=== PATIENT | female | born 1945 | race Caucasian/White ===

== ENCOUNTER 2024-05-01 08:42 | Observation (INO) | payer MEDICARE, SELFPAY ==
[2024-05-01] VITALS (8 sets, daily range): BP systolic 120–177; BP diastolic 57–85; PULSE 61–73; RESP 18–20; TEMP 36.8–37.9; O2SAT 95–98; BMI 21.3; BMI 22.6
--- NOTE | 2024-05-01 08:58 | ED.WEAKNESS ---
HPI - Weakness General Time Seen by Provider: 08:58 Date Seen: 05/01/24 Chief complaint: Weakness Stated complaint: Covid + and weakness Time Seen by Provider: 05/01/24 08:57 Source: patient Mode of arrival: wheelchair Limitations: no limitations History of Present Illness HPI Narrative: Patient is a very pleasant 78-year-old female with remote history of tobacco use having quit 30 years ago, history of colon cancer with partial colectomy, hypertension and history of recurrent C diff who comes to the emergency room for evaluation of weakness and COVID symptoms.Jameel was exposed to COVID in her great grand children last week on April 26. She tested negative on the and had no symptoms until TuesdayApril 29. At that time her voice became raspy and she sounded like she had no ammonia according to a daughter who is currently present with her. She tested positive for COVID. Since that time she has been convalescing at home. Today her daughter noted that she seemed much more weak and seemed to be breathing harder. They are worried that she has pneumonia. She also had the onset of watery stools today. Patient's daughter states that when she was getting out of the car she was very weak and was worried that she was going to fall and thus she came in by wheelchair. She has not been experiencing any fevers and did take a Tylenol earlier today. She did experience some chest pain yesterday but this was associated with coughing and she has no pain today. She and her daughter do describe a productive cough that she was able to actually expelling get up yesterday but today they feel like she is not able to cough as well as she had been doing yesterday. Patient noted to be currently on rivaroxaban, anti hyperlipidemic. As well as antihypertensives. Related Data Home Medications ?Medication ?Instructions ?Recorded ?Confirmed gabapentin 300 mg capsule 300 mg PO DAILY 08/16/22 05/01/24 hydrochlorothiazide 12.5 mg tablet 12.5 mg PO DAILY 08/16/22 05/01/24 metoprolol succinate 50 mg 50 mg PO DAILY 08/16/22 05/01/24 tablet,extended release 24 hr nitrofurantoin 100 mg PO DAILY 08/16/22 05/01/24 monohydrate/macrocrystals 100 mg capsule simvastatin 10 mg tablet 10 mg PO HS 08/16/22 05/01/24 rivaroxaban 10 mg tablet (Xarelto) 10 mg PO DAILY 05/26/23 05/01/24 Previous Rx's ?Medication ?Instructions ?Recorded nirmatrelvir 150 mg-ritonavir 100 See Rx Instructions PO .COMPLEX 05/01/24 mg tablets in a dose pack #20 ea (Paxlovid) Allergies Allergy/AdvReac Type Severity Reaction Status Date / Time No Known Drug Allergies Allergy Verified 05/26/23 12:15 Review of Systems Status of ROS: Reports: 10 or more systems reviewed and unremarkable except as noted in History and below Const: Reports: fatigue; Denies: fever or chills Eyes: Denies: change in vision ENMT: Denies: throat pain, neck pain or throat swelling Cardio: Reports: chest pain and lightheadedness; Denies: palpitations, edema or swelling of feet/ankles Resp: Reports: cough GI: Reports: diarrhea; Denies: abdominal pain, nausea or vomiting : Denies: painful urination Musculo: Denies: neck pain Endo: Reports: fatigue Allergy/Immuno: Denies: throat swelling [facility] Medical History (Reviewed 05/01/24 @ : by Toma Graham MD) Pneumonia ?J18.9 - Pneumonia, unspecified organism (ICD-10) URI (upper respiratory infection) ?J06.9 - Acute upper respiratory infection, unspecified (ICD-10) Sore throat ?J02.9 - Acute pharyngitis, unspecified (ICD-10) Cough ?R05.9 - Cough, unspecified (ICD-10) Social History (Reviewed 05/01/24 @ : by Toma Graham MD) Smoking Status: Former smoker How often do you have a drink containing alcohol: never How often do you have six or more drinks on one occasion: Never AUDIT-C Alcohol total score: 0 Non-prescribed substance use: denies use service: No Exam Narrative: Exam Narrative: Alert and oriented. Here with her daughters very loving and supportive. EOM is full. Mentating normally. Normal speech. Neck is supple without lymphadenopathy. Heart with a regular rate and rhythm. Do not auscultate rub at this time. Lungs are with decreased breath sounds in the bases bilaterally but I do not auscultate any crackles. Abdomen is soft nontender. Lower extremities with no edema. She is moving all of her extremities. Const: Vital Signs, click to edit/add: Vital Signs - 24 hr 05/01/24 08:48 05/01/24 09:11 Temperature 99.2 F Pulse Rate [Pulse Oximeter] 73 Respiratory Rate 18 Blood Pressure [Ri ght Upper Arm] 120/85 Pulse Oximetry 95 97 Oxygen Delivery Me thod Room Air Documenting provider has reviewed patient's vital signs: yes Course Course ED Course: Differential diagnosis includes but is not limited to dehydration, acute coronary event, pneumonia, sepsis, C diff. at this time will place an IV and draw labs to include CBC, comprehensive panel, D-dimer, troponin, CRP. Will place patient on cardiac cath technician and oximetry. At this time patient's O2 sats vary between 93-96%. She is not tachycardic. Will give her small bolus of 250 mL of normal saline. Will check AC diff although the diarrhea is more likely secondary to COVID infection. Chest x-ray pending. Reevaluation(s) Reevaluation #1: Patient does appear to be very weak. She is not wanting to stay in the hospital although her daughter is in favor of that idea. Unfortunately she does not meet criteria for admission inpatient status in regards to her COVID. Currently awaiting on her urine another laboratory values. Vital Signs Vital signs: Initial Vital Signs Temperature 99.2 F 05/01/24 08:48 Temperature Source Temporal Artery Scan 05/01/24 08:48 Pulse Rate 73 05/01/24 08:48 Respiratory Rate 18 05/01/24 08:48 Blood Pressure 120/85 05/01/24 08:48 Blood Pressure Mean 96 05/01/24 08:48 Blood Pressure Position Supine 05/01/24 08:48 Pulse Oximetry 95 05/01/24 08:48 Oxygen Delivery Method Room Air 05/01/24 08:48 Vital Signs Temperature 99.2 F 05/01/24 08:48 Pulse Rate 73 05/01/24 08:48 Respiratory Rate 18 05/01/24 08:48 Blood Pressure 120/85 05/01/24 08:48 Pulse Oximetry 95 05/01/24 08:48 Oxygen Delivery Method Room Air 05/01/24 08:48 Temperature 99.2 F 05/01/24 08:48 Pulse Rate 73 08/13/24 08:48 Respiratory Rate 18 05/01/24 08:48 Blood Pressure 120/85 05/01/24 08:48 Pulse Oximetry 97 05/01/24 09:11 Oxygen Delivery Method Room Air 05/01/24 08:48 MDM - Weakness MDM Narrative Medical decision making narrative: 1. COVID-today is day 3 of COVID with onset of symptoms on Tuesday morning. Positive exposure last week. Tested positive on Tuesday with a home antigen test. Fortunately patient's oxygen levels are reassuring between 93-96%. We did have her walk around the ED and O2 levels did not drop. X-ray is reassuring without any large infiltrates. Patient's daughter notes that yesterday her mom had coughed up some green mucus. Given the fact that her lung sounds are clear, she has COVID and the checks x-ray is reassuring would hesitate to treat with any antibiotics in a patient with recurrent C diff. she is eligible for Paxlovid at the [facility] renal does with a GFR of 60. While we do not have this medication in-house it is available at her [facility]. They have the prepackaged full-dose meds but not the renal packaging. This comes down to the number of pills of 1 of the antivirals and thus I have spoken with [facility] asking them to remove the excess nirmatrelvir. Patient had received her simvastatin early this morning. I would suggest to 12 hour wait and thus start the Paxlovid at 1800 hours. We spoke about the use of her other medications with Paxlovid. Gabapentin hydrochlorothiazide and metoprolol she is able to take without a dose change. Simvastatin will need to high be held and restarted this medication not until 3 days after she finishes Paxlovid. In regards to her Eliquis she is on this medication secondary to DVT and she does have a filter. Up-to-date suggests reduced dosage to 2.5 mg b.i.d. for those with atrial fibrillation. In this particular situation I do not think a dose reduction would be dougherty as patient has tendency to clot and she now has a virus that is inflammatory in nature and will increase her risk of clots. This was discussed with hospitalist today. 2. Urinary tract infection-patient has positive UTI. Initially could not elicit any urinary tract infection symptoms but patient notes that she was up 3 times during the night to urinate and this is very unusual for her. I am going to take urinary frequency as a sign of a UTI as the urinalysis is positive. We will be sending this for a culture. Again, concerns regarding the use of antibiotics in this patient with a history of C diff. I do think that she needs antibiotic treatment and thus we were able to look at past medical records. In 2020 she had received Ceftin and Bactrim and subsequently developed C diff. In 2021 when she developed a UTI she was treated with Keflex and vancomycin. She has not been able to give a sample of stool here in the ED. therefore I did not want to delay treatment of UTI and have given her Keflex 500 mg p.o.. Encouraging her to eat so hopefully we can have a stool sample sent to lab. 3. Weakness-I think this is most likely secondary to COVID but certainly the UTI could be at play. Culture pending 4. History of C diff-patient noted to have colon cancer with partial colectomy in the past. She notes that her baseline is loose stools and that when she has C diff she will have very watery stools which she experienced this morning. She states yesterday was normal. It is challenging to decide if the diarrhea is secondary to COVID verses a C diff infection. Unfortunately again unable to collect stool sample here. 4. Disposition-admit under the care of MASOUD Conti, hospitalist. Outpatient observation status was discussed and patient agreed. Medical Records Attestation: I reviewed the patient's medical records. Lab Data Attestation: I reviewed the patient's lab results. Labs: Lab Results 05/01/24 05/01/24 Range/Units 09:35 10:58 WBC 10.12 (4.50-11.00) K/uL RBC 3.61 L (4.00-5.20) m/uL Hgb 11.1 L (12.0-16.0) gm/dL Hct 34.6 (33.0-51.0) % MCV 96 (80-100) fL MCH 31 (26-34) pg MCHC 32 (32-36) gm/dL RDW Coeff of Clotilde 13.2 (11.5-15.5) % Plt Count 159 (140-440) K/uL Neut % (Auto) 80.0 H (42.0-72.0) % Lymph % (Auto) 10.3 L (20-44) % Cotton % (Auto) 9.1 (0.0-11.0) % Eos % (Auto) 0.1 (0.0-7.0) % Baso % (Auto) 0.4 (0.0-3.0) % Neut # (Auto) 8.10 H (1.7-7.0) K/uL Lymph # (Auto) 1.00 (0.90-2.90) K/uL Cotton # (Auto) 0.90 (0.00-0.90) K/UL Eos # (Auto) 0.01 (0.00-0.50) K/uL Baso # (Auto) 0.04 (0.00-0.30) K/uL Abs Immat Gran (auto) 0.01 (0.00-0.30) K/uL Imm/Tot Granulo (auto) 0.1 % D-Dimer Quant (PE/DVT) 0.55 H (0.00-0.50) ug/ml Sodium 133 L (135-149) mmol/L Potassium 3.8 (3.6-5.1) mmol/L Chloride 99 (96-114) mmol/L Carbon Dioxide 28 (20-32) mmol/L Anion Gap 6 L (7-15) mEq/L BUN 17 (7-30) mg/dL Creatinine 1.2 (0.5-1.5) mg/dL Estimated Creat Clear 31.45 Estimated GFR 46 ml/min Glucose 122 H (60-115) mg/dL Calcium 9.2 (8.4-10.6) mg/dL Total Bilirubin 0.5 (0.1-1.5) mg/dL AST 39 H (12-35) U/L ALT 16 (4-35) U/L Alkaline Phosphatase 78 (40-150) U/L C-Reactive Protein 8.6 H (0.5-1.0) mg/dL Total Protein 7.5 (6.0-8.3) g/dL Albumin 4.2 (3.3-5.0) g/dL Urine Color Yellow (Yellow) Urine Appearance Clear (Clear) Urine pH 5.5 (5.0-8.5) Ur Specific [place] 1.020 (1.000-1.030) Urine Protein 1+ A (Negative) Urine Glucose (UA) Negative (Negative) Urine Ketones 1+ A (Negative) Urine Blood 2+ A (Negative) Urine Nitrite Positive A (Negative) Urine Bilirubin Negative (Negative) Urine Urobilinogen 0.2 (0.2-1.0) Ur Leukocyte Esterase 3+ A (Negative) Urine RBC 5-10 A (0-2) Urine WBC >100 A (0-5) Ur Squamous Epith Cells Few (None-Few) Urine Bacteria Many A (None) POC Troponin I 0.00 L (0.01-0.04) ng/ml Imaging Data Chest x-ray: Attestation: I have reviewed the pertinent imaging results. Radiologist's impression: Low lung volumes. Normal cardiomediastinal silhouette. Mild bibasilar opacities. No pleural effusion or visualized pneumothorax. Impression: Mild bibasilar opacities may represent atelectasis given low lung volumes. ECG Data Attestation: I personally reviewed and interpreted this ECG as follows: Interpretation: EKG by my read shows sinus rhythm at a rate of 67. I do not note any acute T-wave or ST segment changes. QT and LA intervals within normal limits. Discharge Plan Discharge Prescriptions: New Paxlovid 150-100 mg tablets,dose pack See Rx Instructions .ROUTE .COMPLEX Qty: 20 0RF Rx Instructions: orally per package directions; Please remove excess meds as patient needs renal dosing No Action Xarelto 10 mg tablet 10 mg PO DAILY Rx Instructions: for 35 days nitrofurantoin monohyd/m-cryst 100 mg capsule 100 mg PO DAILY gabapentin 300 mg capsule 300 mg PO DAILY hydrochlorothiazide 12.5 mg tablet 12.5 mg PO DAILY simvastatin 10 mg tablet 10 mg PO HS metoprolol succinate 50 mg tablet extended release 24 hr 50 mg PO DAILY Follow Up/Referrals: Maye Slaughter MD [Primary Care Provider] -
--- NOTE | 2024-05-01 09:11 | CRLHL7_ITS ---
For Patients: As a result of the Century Cures Act, medical imaging exams and procedure reports are released immediately into your electronic medical record. You may view this report before your referring provider. If you have questions, please contact your health care provider. Indication: COVID, weakness Technique: AP view of the chest. Comparison: 12/09/2021 Findings: Low lung volumes. Normal cardiomediastinal silhouette. Mild bibasilar opacities. No pleural effusion or visualized pneumothorax. Impression: Mild bibasilar opacities may represent atelectasis given low lung volumes. Dictated by Sathya Frazier MD @ 05/01/2024 10:12:52 AM (Electronically Signed)
[2024-05-01 09:42] LABS: Basophils Absolute Auto 0.04 K/uL (0.00-0.30); Basophils Percent Auto 0.4 % (0.0-3.0); Eosinophils Absolute Auto 0.01 K/uL (0.00-0.50); Eosinophils Percent Auto 0.1 % (0.0-7.0); Hematocrit 34.6 % (33.0-51.0); Hemoglobin* 11.1 gm/dL (12.0-16.0); Immature Granulocytes Abs Auto 0.01 K/uL (0.00-0.30); Immature Granulocytes Pct Auto 0.1 %; Lymphocytes Percent Auto 10.3 % (20-44); Mean Corpuscular HGB Conc 32 gm/dL (32-36); Mean Corpuscular Hemoglobin 31 pg (26-34); Mean Corpuscular Volume 96 fL (80-100); Monocytes Percent Auto 9.1 % (0.0-11.0); Platelet Count* 159 K/uL (140-440); RDW Coefficient of Variation % 13.2 % (11.5-15.5); Red Blood Count 3.61 m/uL (4.00-5.20); White Blood Count* 10.12 K/uL (4.50-11.00)
[2024-05-01 09:45] LABS: Slide Review Reflex No
[2024-05-01 10:05] LABS: Albumin* 4.2 g/dL (3.3-5.0); Chloride* 99 mmol/L (96-114); Sodium* 133 mmol/L (135-149)
[2024-05-01 10:06] LABS: Potassium* 3.8 mmol/L (3.6-5.1)
[2024-05-01 10:08] LABS: Creatinine* 1.2 mg/dL (0.5-1.5); Est. Creatinine Clearance* 31.45; Estimated Glomerular Filt Rate 46 ml/min
[2024-05-01 10:09] LABS: Alanine Aminotransferase* 16 U/L (4-35); Alkaline Phosphatase* 78 U/L (40-150); Anion Gap 6 mEq/L (7-15); Aspartate Amino Transferase* 39 U/L (12-35); Bilirubin Total* 0.5 mg/dL (0.1-1.5); Blood Urea Nitrogen* 17 mg/dL (7-30); Calcium* 9.2 mg/dL (8.4-10.6); Carbon Dioxide* 28 mmol/L (20-32); Glucose* 122 mg/dL (60-115); Total Protein* 7.5 g/dL (6.0-8.3)
[2024-05-01 10:10] LABS: D Dimer Quantitative* 0.55 ug/ml (0.00-0.50)
[2024-05-01 10:12] LABS: C Reactive Protein* 8.6 mg/dL (0.5-1.0)
[2024-05-01 11:11] LABS: Appearance Urine Clear (Clear); Bilirubin Urine Negative (Negative); Blood Urine 2+ (Negative); Color Urine Yellow (Yellow); Glucose Urine Negative (Negative); Ketones Urine 1+ (Negative); Leukocyte Esterase Urine 3+ (Negative); Nitrite Urine Positive (Negative); Protein Urine 1+ (Negative); Urobilinogen Urine 0.2 (0.2-1.0); pH Urine 5.5 (5.0-8.5)
[2024-05-01 11:30] LABS: Bacteria Urine Many; Squamous Epithelial Cell Urine Few (None-Few); WBC Urine >100 (0-5)
--- NOTE | 2024-05-01 13:52 | P.IMHP_ITS ---
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 Patient was brought to the ED by her daughter with complaints of increasing weakness, a raspy voice, and increased work of breathing. She tested positive for COVID with a home antigen test on 04/29 after being exposed to great grandchildren on 04/26 who also ended up testing positive. Getting out of the car was difficult for the patient and needed to be brought in by wheelchair. Patient also had onset of watery diarrhea today. Took Imodium and has had no further stools today. She does have a history of C difficile in the past. Complains of generalized aches, headache, dizziness with standing. Denies chest pain or shortness of breath. Had a cough yesterday which has not bothered her at all today. Denies nausea or vomiting. Quit smoking 30 years ago. Drinks 1-2 beers daily. Requests DNR/DNI. Review of Systems Narrative: REVIEW OF SYSTEMS: Complete review of systems performed and negative unless otherwise stated in HPI or below. [facility] Medical History (Updated 05/01/24 @ 14:57 by Felicia Hancock PA-C) Pre-diabetes ?R73.03 - Prediabetes (ICD-10) Chronic anticoagulation ?Z79.01 - senior living (current) use of anticoagulants (ICD-10) History of DVT (deep vein thrombosis) ?Z86.718 - Personal history of other venous thrombosis and embolism (ICD-10) Recurrent UTI ?N39.0 - Urinary tract infection, site not specified (ICD-10) CKD stage 3b, GFR 30-44 ml/min ?N18.32 - Chronic kidney disease, stage 3b (ICD-10) Multiple sclerosis ?G35 - Multiple sclerosis (ICD-10) Normocytic anemia ?D64.9 - Anemia, unspecified (ICD-10) Chronic colitis ?K52.9 - Noninfective gastroenteritis and colitis, unspecified (ICD-10) History of Clostridioides difficile colitis ?Z86.19 - Personal history of other infectious and parasitic diseases (ICD- 10) History of rectal cancer ?Z85.048 - Personal history of other malignant neoplasm of rectum, rectosigmoid junction, and anus (ICD-10) GERD (gastroesophageal reflux disease) ?K21.9 - Gastro-esophageal reflux disease without esophagitis (ICD-10) Hyperlipidemia ?E78.5 - Hyperlipidemia, unspecified (ICD-10) Hypertension ?I10 - Essential (primary) hypertension (ICD-10) Pneumonia ?J18.9 - Pneumonia, unspecified organism (ICD-10) URI (upper respiratory infection) ?J06.9 - Acute upper respiratory infection, unspecified (ICD-10) Sore throat ?J02.9 - Acute pharyngitis, unspecified (ICD-10) Cough ?R05.9 - Cough, unspecified (ICD-10) Social History Smoking Status: Former smoker How often do you have a drink containing alcohol: never How often do you have six or more drinks on one occasion: Never AUDIT-C Alcohol total score: 0 Non-prescribed substance use: denies use service: No Meds Home Medications and Allergies Home Medications ?Medication ?Instructions ?Recorded ?Confirmed ?Type gabapentin 300 mg capsule 300 mg PO DAILY 08/16/22 05/01/24 History hydrochlorothiazide 12.5 mg tablet 12.5 mg PO DAILY 08/16/22 05/01/24 History metoprolol succinate 50 mg 50 mg PO DAILY 08/16/22 05/01/24 History tablet,extended release 24 hr nitrofurantoin 100 mg PO DAILY 08/16/22 05/01/24 History monohydrate/macrocrystals 100 mg capsule simvastatin 10 mg tablet 10 mg PO HS 08/16/22 05/01/24 History rivaroxaban 10 mg tablet (Xarelto) 10 mg PO DAILY 05/26/23 05/01/24 History Allergies Allergy/AdvReac Type Severity Reaction Status Date / Time No Known Drug Allergies Allergy Verified 05/26/23 12:15 Exam Narrative: Exam Narrative: PHYSICAL EXAM General: Very pleasant, conversant, NAD HEENT: Normocephalic, atraumatic, sclera white, EOMI, oral mucosa dry Cardiovascular: RRR, S1S2. No pitting edema Pulmonary: CTA bilaterally without rhonchi, rales, expiratory wheezes. No dyspnea on room air Abdominal: Soft, nondistended, NTTP Neurological: Alert, answering questions appropriately, cranial nerves intact, no focal findings Extremities: No gross joint deformity or swelling. AROMI. Neurovascularly intact Skin: Warm, dry. Const: Vital Signs, click to edit/add: Vital Signs - 24 hr 05/01/24 08:48 05/01/24 09:11 Temperature 99.2 F Pulse Rate [Pulse Oximeter] 73 Respiratory Rate 18 Blood Pressure [Ri ght Upper Arm] 120/85 Pulse Oximetry 95 97 Oxygen Delivery Me thod Room Air Hospitalist - H&P: Result Labs Labs: Short CBC 05/01/24 Range/Units 09:35 WBC 10.12 (4.50-11.00) K/uL Hgb 11.1 L (12.0-16.0) gm/dL Hct 34.6 (33.0-51.0) % Plt Count 159 (140-440) K/uL BMP 05/01/24 09:35 Sodium 133 L Potassium 3.8 Chloride 99 Carbon Dioxide 28 BUN 17 Creatinine 1.2 Glucose 122 H Calcium 9.2 Liver Function 05/01/24 Range/Units 09:35 Total Bilirubin 0.5 (0.1-1.5) mg/dL AST 39 H (12-35) U/L ALT 16 (4-35) U/L Alkaline Phosphatase 78 (40-150) U/L Albumin 4.2 (3.3-5.0) g/dL Urine 05/01/24 Range/Units 10:58 Urine Color Yellow (Yellow) Urine Appearance Clear (Clear) Urine pH 5.5 (5.0-8.5) Ur Specific [place] 1.020 (1.000-1.030) Urine Protein 1+ A (Negative) Urine Glucose (UA) Negative (Negative) Imaging Chest x-ray: Attestation: I have reviewed the pertinent imaging results. Radiologist's impression: Low lung volumes. Normal cardiomediastinal silhouette. Mild bibasilar opacities. No pleural effusion or visualized pneumothorax. Impression: Mild bibasilar opacities may represent atelectasis given low lung volumes. Assessment and Plan Assessment and plan (1) COVID: Problem comment: + home antigen test 04/29/24 CXR shows Low lung volumes. Normal cardiomediastinal silhouette. Mild bibasilar opacities. No pleural effusion or visualized pneumothorax Weakness, unsafe to return home alone No oxygen requirements, ambulatory sats 93-96%. No further cough ED has prescribed Paxlovid, renally dosed, for daughter to berry picker machine operator for her - first dose this evening. Discussed with pharmacy Simvastatin held - okay to restart 3 days after finishing Paxlovid PT/OT consults, social media editor for discharge planning/placement needs Status: Acute (2) Diarrhea: Problem comment: Possibly COVID related. Also notable history of C difficile. History of colon cancer s/p partial colectomy Collect stools for C diff Precautions Status: Acute (3) UTI (urinary tract infection): Problem comment: Acute on chronic, recurrent Increased urinary frequency overnight. Afebrile. Vitally stable. Increased wea kness Urinalysis + nitrites, 3+ LE, >100 WBC. UC pending. No leukocytosis Ceftriaxone, transitioning to oral, pending UC results IVF, 1L History of C diff following antibiotic management previous UTIs, collect stools for C diff Status: Acute (4) History of DVT (deep vein thrombosis): Problem comment: On chronic anticoagulation, Eliquis 10 mg daily. History of IVC filter Given significant history, continue on current dosing while on Paxlovid knowing increased risk for clots with covid. Discussed with pharmacy Status: Acute (5) CKD stage 3b, GFR 30-44 ml/min: Problem comment: Creatinine 1.2, previous 0.95 Estimated creatinine clearance 31.45 Paxlovid, renally dosed Monitor Status: Acute (6) Hypertension: Problem comment: Continue home medications Status: Acute (7) Hyperlipidemia: Problem comment: Hold statin while taking Paxlovid. Restart 3 days after completing therapy Status: Acute (8) Multiple sclerosis: Problem comment: Diagnosed approximately 40 years ago Followed by Neurology, last visit 04/[address] Bellamy Status: Acute Plan Consider discharge 1-2 days pending clinical improvement, safe discharge plan Total Time Spent Total Time Spent: Total time spent caring for the patient today was 45 minutes. This includes time spent for the visit reviewing the chart, time spent during the visit, time spent after the visit and documentation and planning in coordination of care.
--- NOTE | 2024-05-01 15:43 | PC.NURSE ---
Nursing Care Hours: [id number] Pt arrived from ED on w/c. Ax1 with cane to bed. Settled with warm blanket. Report given to oncoming nurse.
[2024-05-01] MEDS: NIRMATRELVIR/RITONAVIR DOSEPAK 2 TAB PO (16:16)
[2024-05-01] MEDS: 0.9 % SODIUM CHLORIDE 1000 ml 1,000 ML 125 ML IV (16:34)
[2024-05-01] MEDS: cefTRIAXone 1 GM in 0.9 % SODIUM CHLORIDE Mini-bag 100 ML IVPB (16:34)
[2024-05-01] MEDS: ACETAMINOPHEN 325 MG TABLET 650 MG PO (22:16)
[2024-05-01] MEDS: MELATONIN 3 MG TABLET PO (23:02)
[2024-05-02 03:00] VITALS: BP 134/69; PULSE 64; RESP 18; TEMP 37.3; O2SAT 92
--- NOTE | 2024-05-02 05:35 | PC.NURSE ---
[id number] Pt had some difficulty sleeping during the night, states she was wide awake every time RN went into room for cares/rounds. ambulating with cane and SBA, states she feels weak, occasional lightheaded, denies feeling dizzy, tolerated activity fair. O2 sats >92% on RA during checks, denies SOB, chest pain or difficulty breathing. mild temp noted with 2300 vitals, tylenol administered and temp decreased.
[2024-05-02 05:39] VITALS: TEMP 37.3
[2024-05-02] MEDS: NIRMATRELVIR/RITONAVIR DOSEPAK 2 TAB PO ×2 (06:19→08:52)
[2024-05-02 07:18] VITALS: PULSE 61
[2024-05-02 08:01] VITALS: BP 137/78; PULSE 62; RESP 16; TEMP 37.4; O2SAT 96
[2024-05-02 08:09] VITALS: PULSE 62; RESP 16
[2024-05-02] MEDS: METOPROLOL SUCCINATE (XL) 50 MG TAB PO (08:52)
[2024-05-02] MEDS: GABAPENTIN 300 MG CAPSULE PO (08:52)
[2024-05-02] MEDS: hydroCHLOROthiazide 12.5 MG CAPSULE PO (08:52)
[2024-05-02] MEDS: RIVAROXABAN 10 MG TABLET PO (08:52)
[2024-05-02] MEDS: SODIUM CHLORIDE 0.9 % (FLUSH) 10 ML SYRINGE 5 ML IVF (08:52)
[2024-05-02 09:37] LABS: Hematocrit 35.5 % (33.0-51.0); Mean Corpuscular HGB Conc 31 gm/dL (32-36); Mean Corpuscular Hemoglobin 30 pg (26-34); Mean Corpuscular Volume 98 fL (80-100); Platelet Count* 159 K/uL (140-440); Red Blood Count 3.64 m/uL (4.00-5.20); White Blood Count* 4.93 K/uL (4.50-11.00)
[2024-05-02 09:40] LABS: Slide Review Reflex No
[2024-05-02 09:51] LABS: Chloride* 101 mmol/L (96-114); Potassium* 3.5 mmol/L (3.6-5.1); Sodium* 136 mmol/L (135-149)
[2024-05-02 09:53] LABS: Creatinine* 0.8 mg/dL (0.5-1.5); Est. Creatinine Clearance* 37.74; Estimated Glomerular Filt Rate 75 ml/min
[2024-05-02 09:54] LABS: Anion Gap 7 mEq/L (7-15); Blood Urea Nitrogen* 18 mg/dL (7-30); Carbon Dioxide* 28 mmol/L (20-32)
[2024-05-02 09:55] LABS: Glucose* 84 mg/dL (60-115)
[2024-05-02 09:57] LABS: C Reactive Protein* 8.5 mg/dL (0.5-1.0)
--- NOTE | 2024-05-02 10:24 | PC.SOCIAL ---
Spoke with pt.'s daughter Felicia to discuss discharge plans. Pt. lives in her own home independently and prior to getting COVID has not needed any additional assistance at home. Pt's daughter Felicia @[phone] lives a couple of houses down from pt. and plans to assist pt. if needed at discharge. Pt. and family are aware they can contact the social work if they need additional resources for pt. at home.
[2024-05-02 10:54] VITALS: BP 136/74; PULSE 62; RESP 16; TEMP 37.1; O2SAT 95
--- NOTE | 2024-05-02 11:13 | PM.DS1 ---
DS: Providers Provider Date Seen: 05/02/24 Date of admission: 05/01/24 14:16 Primary care physician: Maye Slaughter MD Admitting Clinician: POONAM Gee PA-C [facility] Hospitalist Consults: 05/01/24 14:36 Consult to Occupational Therapy [CONS] Routine Comment: Reason(s) for OT Consult:: Evaluate and Treat Any Restrictions?:: No Restrictions Consult to Physical Therapy [CONS] Routine Comment: Reason(s) for PT Consult:: Evaluate and Treat Any Restrictions?:: No Restrictions Consult to [facility] [CONS] Routine Comment: Reason for Consult:: Social Service Consult Attending Physician on discharge: POONAM Gee PA-C [facility] Hospitalist Date of Discharge: 05/02/24 DS: Diagnosis Discharge Diagnosis (1) COVID: Status: Acute Problem details: + home antigen test 04/29/24 CXR shows Low lung volumes. Normal cardiomediastinal silhouette. Mild bibasilar opacities. No pleural effusion or visualized pneumothorax Weakness, unsafe to return home alone No oxygen requirements, ambulatory sats 93-96%. No further cough. Symptoms significantly improving prior to discharge. Continue Paxlovid as prescribed Simvastatin held - okay to restart 3 days after finishing Paxlovid (on or around 05/10) PT/OT consulted, patient safe to return home. Encouraging use of a walker. Has a family member, also a PT, who will assist her. (2) Diarrhea: Status: Acute Problem details: Possibly COVID related. Also notable history of C difficile. History of colon cancer s/p partial colectomy No further stools during course of hospitalization. If recur following discharge, while on oral antibiotic, instructed follow-up with PCP for stool testing. (3) UTI (urinary tract infection): Status: Acute Problem details: Acute on chronic, recurrent. Previous urine cultures (2021) growing E coli, Klebsiella, Enterococcus - sensitive to cephalosporins Increased urinary frequency overnight. Afebrile. Vitally stable. Increased weakness Urinalysis + nitrites, 3+ LE, >100 WBC. Bloodwork without leukocytosis. UC pending at time of discharge. Initiated on Ceftriaxone and transitioned to Ceftin on discharge. (4) History of DVT (deep vein thrombosis): Status: Acute Problem details: On chronic anticoagulation, Eliquis 10 mg daily. History of IVC filter Given significant history, continue on current dosing while on Paxlovid knowing increased risk for clots with covid. Discussed with pharmacy (5) CKD stage 3b, GFR 30-44 ml/min: Status: Acute Problem details: Creatinine 1.2 on admission, previous 0.95, improved to 0.8 on day of discharge. Estimated creatinine clearance 31.45 on admission. Paxlovid renally dosed. (6) Hypertension: Status: Acute Problem details: Continued home medications (7) Hyperlipidemia: Status: Acute Problem details: Hold statin while taking Paxlovid. Restart 3 days after completing therapy, on or approximately 05/10/24 (8) Multiple sclerosis: Status: Acute Problem details: Diagnosed approximately 40 years ago Followed by Neurology, last visit 04/[address] Bellamy DS: Summary Hospital Course Hospital Course: [age] year old female was admitted to the medical floor for management weakness in setting of COVID and UTI. Course of care and details as noted above. Remainder of chronic medical comorbidities were monitored and managed with home medications. Status at Discharge Functional status at discharge: uses cane/walker Overall status at discharge: patient is back to baseline Time Spent with Patient Time attestation: Total time spent providing and/or coordinating discharge services: Time spent: Greater than 30 minutes Exam Narrative: Exam Narrative: PHYSICAL EXAM General: Pleasant, conversant, NAD Cardiovascular: RRR Pulmonary: No dyspnea Neurological: Alert, answering questions appropriately Skin: Warm, dry. Const: Vital Signs, click to edit/add: Vital Signs - 24 hr 05/01/24 14:36 05/01/24 14:36 05/01/24 14:36 Temperature 98.3 F Pulse Rate 63 Pulse Rate [Pulse Oximeter] 61 Respiratory Rate 18 18 Blood Pressure [Le ft Arm] 123/57 L Pulse Oximetry 97 97 Oxygen Delivery Me thod Room Air Room Air 05/01/24 15:00 05/01/24 16:00 05/01/24 16:00 Temperature 98.3 F Pulse Rate Pulse Rate [Pulse Oximeter] 61 61 Respiratory Rate 18 18 18 Blood Pressure [Le ft Arm] 123/57 L Pulse Oximetry 97 97 Oxygen Delivery Me thod Room Air Room Air 05/01/24 19:00 05/01/24 22:16 05/01/24 23:00 Temperature 99.7 F H 100.2 F H 100.2 F H Pulse Rate Pulse Rate [Pulse Oximeter] 63 68 Respiratory Rate 20 18 Blood Pressure [Le ft Arm] 177/84 H 172/82 H Pulse Oximetry 98 97 Oxygen Delivery Me thod Room Air Room Air 05/01/24 23:00 05/02/24 03:00 05/02/24 05:39 Temperature 99.1 F 99.1 F Pulse Rate 64 Pulse Rate [Pulse Oximeter] 64 Respiratory Rate 18 Blood Pressure [Le ft Arm] 134/69 Pulse Oximetry 92 Oxygen Delivery Me thod Room Air 05/02/24 07:18 05/02/24 08:01 05/02/24 08:09 Temperature 99.4 F Pulse Rate 61 Pulse Rate [Pulse Oximeter] 62 62 Respiratory Rate 16 16 Blood Pressure [Le ft Arm] 137/78 Pulse Oximetry 96 Oxygen Delivery Me thod Room Air 05/02/24 10:54 Temperature 98.7 F Pulse Rate Pulse Rate [Pulse Oximeter] 62 Respiratory Rate 16 Blood Pressure [Le ft Arm] 136/74 Pulse Oximetry 95 Oxygen Delivery Me thod Room Air DS: Data Data Completed and Pending Labs on day of discharge: Labs from last 24 hours 05/02/24 05/01/24 03:12 10:58 WBC 4.93 RBC 3.64 L Hgb 11.0 L Hct 35.5 MCV 98 MCH 30 MCHC 31 L Plt Count 159 Sodium 136 Potassium 3.5 L Chloride 101 Carbon Dioxide 28 Anion Gap 7 BUN 18 Creatinine 0.8 Estimated Creat Clear 37.74 Estimated GFR 75 Glucose 84 Calcium 9.0 C-Reactive Protein 8.5 H Urine Color Yellow Urine Appearance Clear Urine pH 5.5 Ur Specific [place] 1.020 Urine Protein 1+ A Urine Glucose (UA) Negative Urine Ketones 1+ A Urine Blood 2+ A Urine Nitrite Positive A Urine Bilirubin Negative Urine Urobilinogen 0.2 Ur Leukocyte Esterase 3+ A Urine RBC 5-10 A Urine WBC >100 A Ur Squamous Epith Cells Few Urine Bacteria Many A Preliminary micro results at discharge 05/01/24 10:58 Urine Culture - Preliminary Urine,Clean Catch Culture in Progress Discharge Plan Discharge Disposition: Home, Self-Care Date of Admission: 05/01/24 14:16 Attending Provider on Discharge: Felicia Hancock Primary Care Provider: Maye Slaughter Condition: Improved Anticipated Discharge Date/Time: 05/02/24 10:59 Discharge Medications: New Paxlovid 150-100 mg tablets,dose pack See Rx Instructions .ROUTE .COMPLEX Qty: 20 0RF Rx Instructions: orally per package directions; Please remove excess meds as patient needs renal dosing cefuroxime axetil 500 mg tablet 500 mg PO BID Qty: 14 0RF Continued Xarelto 10 mg tablet 10 mg PO DAILY Rx Instructions: for 35 days gabapentin 300 mg capsule 300 mg PO DAILY hydrochlorothiazide 12.5 mg tablet 12.5 mg PO DAILY metoprolol succinate 50 mg tablet extended release 24 hr 50 mg PO DAILY Held nitrofurantoin monohyd/m-cryst 100 mg capsule 100 mg PO DAILY Hold Instructions: Resume on 05/11/24. Resume when instructed by PCP simvastatin 10 mg tablet 10 mg PO HS Hold Instructions: Resume on 05/10/24. You may resume simvastatin 3 days after you finish Paxlovid, 05/10/24 Discharge Orders: Discharge Order (Routine); Ordered 05/02/24 Ordered By: Felicia Hancock Patient Education: Cefuroxime (By mouth), Nirmatrelvir/Ritonavir (By mouth) (Paxlovid), Urinary Tract Infection in Women (GEN), COVID-19 (Coronavirus Disease 2019) (GEN) Additional Instructions: You have been prescribed Ceftin for your UTI. Complete all of this antibiotic. Your urine culture is pending. If you develop watery diarrhea, follow up with your PCP for stool testing. Finish Paxlovid as prescribed. Continue to quarantine, current CDC recommendations are 5 days if symptom free. You may start taking your simvastatin 3 days after you finish your Paxlovid. Continue taking your Xarelto as prescribed. Remember to use you walker Activity Level: Activity as Tolerated Discharge Diet: Regular Follow Up Appointments: Maye Slaughter MD [Primary Care Provider] - (Post hospital follow up 7-10 days) Forms: [employer] Info Instructions
--- NOTE | 2024-05-02 13:59 | PC.NURSE ---
discharge. pt has been very pleasant. no pain. she is up with a cane. RN recommended a walker. PT got her a walker and PT said she she liked it. she is eating drinking and voiding, no temps. tele shows 1 st degree HB> SL was d/c intact., went over discharge packet with pt and family. went over medications, appointments, instruction and educations. pt went over and signed personal belonging sheet.
--- NOTE | 2024-05-02 14:33 | REH.OT ---
OT consult order received. Pt. discharged prior to evaluation.
== END 2024-05-02 11:55 | disposition home or self-care (01) ==
LOC: ED 10:09 → MEDSURG 14:17
PROVIDERS: Physician Assistant; Admitting Provider Family Medicine; Emergency Provider Family Medicine; PCP Family Medicine; Visit Provider Family Medicine
DX: U07.1 COVID-19 (principal); N39.0 Urinary tract infection, site not specified; R53.1 Weakness; R19.7 Diarrhea, unspecified; R91.8 Other nonspecific abnormal finding of lung field; R05.9 Cough, unspecified; R53.83 Other fatigue; I12.9 Hypertensive chronic kidney disease with stage 1 through stage 4 chronic kidney disease, or unspecified chronic kidney disease; N18.32 Chronic kidney disease, stage 3b; G35 Multiple sclerosis; K21.9 Gastro-esophageal reflux disease without esophagitis; E78.5 Hyperlipidemia, unspecified; Z79.01 Long term (current) use of anticoagulants; Z86.718 Personal history of other venous thrombosis and embolism; Z87.891 Personal history of nicotine dependence; Z86.010 Personal history of colon polyps; Z87.19 Personal history of other diseases of the digestive system; Z86.19 Personal history of other infectious and parasitic diseases; Z98.890 Other specified postprocedural states; Z85.048 Personal history of other malignant neoplasm of rectum, rectosigmoid junction, and anus
CPT/HCPCS: 36415; 71045; 80048; 80053; 81001; 84484; 85025; 85027; 85379; 86140; 87086; 87186; 87493; 93005; 94761; 96361; 96365; 97112; 97116; 97161; 99284; 99285; G0378; A9270; J0696; J7030

== ENCOUNTER 2024-12-02 18:14 | Inpatient (IN) | payer MEDICARE, SELFPAY ==
[2024-12-02] VITALS (7 sets, daily range): BP systolic 103–152; BP diastolic 60–84; PULSE 88–98; RESP 16–18; TEMP 37.2–39.5; O2SAT 91–98; BMI 21.3
--- OUTSIDE RECORDS SUMMARY | 2024-12-02 18:17 | XMS_ITS | Data Portability ---
Author Organization [facility] 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 Plan of Treatment Reminders Order Date Submit Date Provider Last Modified By Organization Details Last Modified Time Details Appointments None recorded. Lab culture, urine 2020 021 [facility], [address] [place], [address], 15:55:38 CMP, serum or plasma 2020 021 [facility], [address] [place], [address], 13:45:16 CBC 2020 021 [facility], [address] [place], [address], 11:53:49 urinalysis , complete 2020 021 [facility], [address], [place], [address], 11:29:49 magnesium, serum or plasma 2020 021 [facility], [address] [place], [address], 13:45:17 Referral None recorded. Procedures None recorded. Surgeries None recorded. Imaging None recorded. Medication Orders None recorded. Patient TargetsNo targets recorded. Patient Instructions Encounter Date Encounter Id Patient Instructions Last Modified By Organization Details Last Modified Time 11/07/2020 [id number] dehydration: car e instructions Not available 11/07/2020 10:10:05 11/11/2020 [id number] Urinary Tract Infection (UTI) in Women: Care Instructions Not available 11/11/2020 09:26:32 Reason for Referral None Reported. Results Created Date Observation Date Name Description Value Unit Range Abnormal Flag Note LastModifiedBy Organization Detail LastModifiedTime 11/07/1911/07/2020 urina lysis , compl ete color YELLOW yellow Not Available [facility] [address] [place], [address], 11/07/2020 11:29:49 11/07/19 21 11/07/2020 urina lysis , compl ete appearance SLIGHT LY CLOUDY clear abnormal Not Available [facility] [address] [place], [address], 11/07/2020 11:29:49 11/07/19 21 11/07/2020 urina lysis , compl ete specific gravity 1.011 1.005- 1.030 Not Available [facility] [address] [place], [address], 11/07/2020 11:29:49 11/07/19 21 11/07/2020 urina lysis , compl ete pH 6.50 5.00-8 .00 Not Available [facility] [address] [place], [address], 11/07/2020 11:29:49 11/07/19 21 11/07/2020 urina lysis , compl ete glucose NEGATI VE mg/dL negati ve Not Available [facility] [address], [place], [address], 11/07/2020 11:29:49 11/07/19 21 11/07/2020 urina lysis , compl ete bilirubin NEGATI VE mg/dL negati ve Not Available [facility] [address], [place], [address], 11/07/2020 11:29:49 11/07/19 21 11/07/2020 urina lysis , compl ete ketone NEGATI VE mg/dL negati ve Not Available [facility] [address], [place], [address], 11/07/2020 11:29:49 11/07/19 21 11/07/2020 urina lysis , compl ete blood SMALL mg/dL negati ve abnormal Micro scopi c is indic ated for trace blood , trace leuko cytes , + nitri nunu, or 1+ prote in. All other s are consi dered negat jhoan and no micro scopi c neede d. Not Available [facility] [address], [place], [address], 11/07/2020 11:29:49 11/07/19 21 11/07/2020 urina lysis , compl ete urobilinogen NORMAL E.U./ dL 0.2 E.U./d L Not Available [facility] [address], [place], [address], 11/07/2020 11:29:49 11/07/19 21 11/07/2020 urina lysis , compl ete protein NEGATI VE mg/dL negati ve Not Available [facility] [address], [place], [address], 11/07/2020 11:29:49 11/07/19 21 11/07/2020 urina lysis , compl ete nitrite NEGATI VE negati ve Not Available [facility] [address] [place] [address] [address], [place], [address], 11/07/2020 11:29:49 11/07/19 21 11/07/2020 urina lysis , compl ete leukocyte LARGE camila/u L negati ve abnormal A Cultu re will refle x when any of the follo wing crite prakash is met: - Posit jhoan Nitri te - Small , Moder ate or Large Leuko cytes - => 6 WBC/H PF - 4+ Bacte prakash on micro scopi c exami natio n - Any amoun t of YEAST on micro scopi c exam Not Available [facility] [address] [place] [address] [address], [place], [address], 11/07/2020 11:29:49 11/07/19 21 11/07/2020 cultu re, urine refle x culture, urine reflex SENT FOR CULTUR E Not Available [facility] [address] [place] [address] [address] [place], [address], 11/07/2020 11:29:50 11/07/19 21 11/07/2020 urina lysis , micro scopi c URBC 6 #/hpf 0-3 high Not Available [facility] [address] [place] [address] [address] [place], [address], 11/07/2020 11:29:50 11/07/19 21 11/07/2020 urina lysis , micro scopi c UWBC 149 #/hpf 0-3 high Not Available [facility] [address] [place] [address] [address] [place], [address], 11/07/2020 11:29:50 11/07/19 21 11/07/2020 urina lysis , micro scopi c epithelial cells 1 /hpf 0-10 Not Available [facility] [address] [place] [address] [address] [facility], [place], [address], 11/07/2020 11:29:50 11/07/19 21 11/07/2020 urina lysis , micro scopi c bacteria 4+ /uL none seen abnormal Not Available [facility] [address], [place], [address], 11/07/2020 11:29:50 11/07/19 21 11/07/2020 CBC WBC_I 10.10 3.60-1 0.00 high Not Available [facility] [address], [place], [address], 11/07/2020 11:53:49 11/07/19 21 11/07/2020 CBC nucleated RBC 0.10 % 0.00-2 .00 Not Available [facility], [place], [address], 11/07/2020 11:53:49 11/07/19 21 11/07/2020 CBC RBC 3.56 M/uL 3.90-5 .00 low Not Available [facility] [address] [place], [place] [address]y [address], [place], [address], 11/07/2020 11:53:49 11/07/19 21 11/07/2020 CBC hemoglobin 11.3 g/dL 12.0-1 5.0 low Not Available [facility] [address] [place], [place] [address]y [address], [place], [address], 11/07/2020 11:53:49 11/07/19 21 11/07/2020 CBC hematocrit 33.60 % 35.00- 45.00 low Not Available [facility] [address], [place], [address], 11/07/2020 11:53:49 11/07/19 21 11/07/2020 CBC MCV 94.5 fL 80.0-9 9.0 Not Available [facility] [address], [place], [address], 11/07/2020 11:53:49 11/07/19 21 11/07/2020 CBC MCH 31.7 pg 27.0-3 3.0 Not Available [facility] [address], [place], [address], 11/07/2020 11:53:49 11/07/19 21 11/07/2020 CBC MCHC 33.6 g/dL 32.0-3 6.0 Not Available [facility] [address], [place], [address], 11/07/2020 11:53:49 11/07/19 21 11/07/2020 CBC platelets 408 K/uL 140-44 0 Not Available [facility], [place], [address], 11/07/2020 11:53:49 11/07/19 21 11/07/2020 CBC RDW_I 13.2 % 11.0-1 5.0 Not Available [facility] [address], [place], [address], 11/07/2020 11:53:49 11/07/19 21 11/07/2020 CBC MPV 7.8 fL 7.4-10 .4 Not Available [facility] [address], [place], [address], 11/07/2020 11:53:49 11/07/19 21 11/07/2020 CBC neutrophil, percentage 59.2 % 40.0-7 5.0 Not Available [facility] [address], [place], [address], 11/07/2020 11:53:49 11/07/19 21 11/07/2020 CBC lymphocyte, percentage 29.6 % 15.0-4 5.0 Not Available [facility] [facility] [address], [place], [address], 11/07/2020 11:53:49 11/07/19 21 11/07/2020 CBC monocyte, percentage 8.7 % 4.0-9. 0 Not Available [facility] [address] [place], [place] [address]y [address], [place], [address], 11/07/2020 11:53:49 11/07/19 21 11/07/2020 CBC eosinophil, percentage 1.7 % 1.0-6. 0 Not Available [facility] [address] [place], [place] [address]y [address], [place], [address], 11/07/2020 11:53:49 11/07/19 21 11/07/2020 CBC basophil, percentage 0.8 % 0.0-2. 0 Not Available [facility] [address] [place], [place] [address]y [address], [place], [address], 11/07/2020 11:53:49 11/07/19 21 11/07/2020 CBC neutrophil, absolute 6.0 K/uL 1.5-7. 5 Not Available [facility] [address] [place], [place] [address] [address] [place], [address], 11/07/2020 11:53:49 11/07/19 21 11/07/2020 CBC lymphocyte, absolute 3.0 K/uL 0.8-4. 0 Not Available [facility] [address] [place], [place] [address], [place], [address], 11/07/2020 11:53:49 11/07/19 21 11/07/2020 CBC monocyte, absolute 0.9 K/uL 0.1-1. 0 Not Available [facility] [address] [place] [address] [address], [place], [address], 11/07/2020 11:53:49 11/07/19 21 11/07/2020 CBC eosinophil, absolute 0.2 K/uL 0.1-1. 0 Not Available [facility] [address] [place], [address], 11/07/2020 11:53:49 11/07/19 21 11/07/2020 CBC basophil, absolute 0.1 K/uL 0.0-0. 2 Not Available [facility] [address], [place], [address], 11/07/2020 11:53:49 11/07/19 21 11/07/2020 CMP, serum or plasm a glucose 80 mg/dL 70-100 Not Available [facility] [address] [place], [place] [address] [address] [place], [address], 11/07/2020 13:45:16 11/07/19 21 11/07/2020 CMP, serum or plasm a BUN 10 mg/dL 7-25 Not Available [facility] [address] [place], [place] [address] [address] [place], [address], 11/07/2020 13:45:16 11/07/19 21 11/07/2020 CMP, serum or plasm a creatinine 0.9 mg/dL 0.6-1. 3 Not Available [facility] [address] [place], [place] [address], [place], [address], 11/07/2020 13:45:16 11/07/19 21 11/07/2020 CMP, serum or plasm a BUN/creatini ne ratio 12 calc 10-25 Not Available [facility] [address] [place], [place] [address] [address], [place], [address], 11/07/2020 13:45:16 11/07/19 21 11/07/2020 CMP, serum or plasm a eGFR 84 mL/mi n/1.7 3m2 >60 THREE CONSE CUTIV E VALUE S <60 mL/mi n COULD BE INDIC ATIVE OF KIDNE Y DISEA SE. Not Available [facility] [address], [place], [address], 11/07/2020 13:45:16 11/07/19 21 11/07/2020 CMP, serum or plasm a eGFR non- 69 mL/mi n/1.7 3m2 >60 THREE CONSE CUTIV E VALUE S < 60 mL/mi n COULD BE INDIC ATIVE OF KIDNE Y DISEA SE Not Available [facility] [address], [place], [address], 11/07/2020 13:45:16 11/07/19 21 11/07/2020 CMP, serum or plasm a sodium 137 mmol/ L 135-14 5 Not Available [facility] [address], [place], [address], 11/07/2020 13:45:16 11/07/19 21 11/07/2020 CMP, serum or plasm a potassium 4.2 mmol/ L 3.5-5. 5 Not Available [facility] [address], [place], [address], 11/07/2020 13:45:16 11/07/19 21 11/07/2020 CMP, serum or plasm a chloride 100 mmol/ L 100-11 5 Not Available [facility] [address], [place], [address], 11/07/2020 13:45:16 11/07/19 21 11/07/2020 CMP, serum or plasm a CO2 30 mmol/ L 21-33 Not Available [facility] [address], [place], [address], 11/07/2020 13:45:16 11/07/19 21 11/07/2020 CMP, serum or plasm a anion gap 7.0 calc 3.0-11 .0 Not Available [facility] [facility] [address], [place], [address], 11/07/2020 13:45:16 11/07/19 21 11/07/2020 CMP, serum or plasm a calcium 9.9 mg/dL 8.8-10 .6 Not Available [facility] [facility] [address], [place], [address], 11/07/2020 13:45:16 11/07/19 21 11/07/2020 CMP, serum or plasm a total protein 6.9 g/dL 6.2-8. 6 Not Available [facility] [address] [place], [place] [address] [address], [place], [address], 11/07/2020 13:45:16 11/07/19 21 11/07/2020 CMP, serum or plasm a albumin 3.9 g/dL 3.5-5. 7 Not Available [facility] [address] [place], [place] [address] [address], [place], [address], 11/07/2020 13:45:16 11/07/19 21 11/07/2020 CMP, serum or plasm a globuln 3.0 g/dL 1.3-4. 0 Not Available [facility] [address] [place], [place] [address] [address], [place], [address], 11/07/2020 13:45:16 11/07/19 21 11/07/2020 CMP, serum or plasm a A/G ratio 1.3 calc 1.0-2. 8 Not Available [facility] [facility] [address] [place], [address], 11/07/2020 13:45:16 11/07/19 21 11/07/2020 CMP, serum or plasm a AST (SGOT) 25 U/L 13-39 Not Available [facility] [address], [place], [address], 11/07/2020 13:45:16 11/07/19 21 11/07/2020 CMP, serum or plasm a ALT (SGPT) 15 U/L 7-52 Not Available [facility] [address], [place], [address], 11/07/2020 13:45:16 11/07/19 21 11/07/2020 CMP, serum or plasm a alkaline phosphatase 61 U/L 20-128 Not Available [facility] [address] [facility] [address] [place], [address], 11/07/2020 13:45:16 11/07/19 21 11/07/2020 CMP, serum or plasm a total bilirubin 0.31 mg/dL 0.30-1 .00 Not Available [facility] [address] [facility] [address], [place], [address], 11/07/2020 13:45:16 11/07/19 21 11/07/2020 magne sium, serum or plasm a magnesium 1.6 mg/dL 1.7-2. 5 low Not Available [facility] [address] [facility] [address], [place], [address], 11/07/2020 13:45:17 11/07/19 21 11/07/2020 venip unctu re results Compl ete Not Available [facility] [address] [facility] [address], [place], [address], 11/07/2020 10:41:23 Result Notes None recorded. Problems No Known Problems Procedures Surgical History Date Name Laterality Status Provider Name and Address Organization Details Recorded Time 11/07/19 21 TCM Initial completed Eligio Aguilar [facility], [facility] 11/07/2020 09:53:56 11/07/19 21 Quality TCM Medication Reconciliation completed Rogersjon Aguilar [facility], [facility] 11/07/2020 09:53:41 Imaging Results None recorded. Procedure Notes None recorded. Medical Equipment None Reported. Allergies No known drug allergies Medications Name Sig Start Date Stop Date Status Note LastModified by Organization Details LastModified Time metoprolol succinate ER 50 mg tablet,extended release Take 1 tablet every day by oral route. active Not Available Not Available No t Available simvastatin 10 mg tablet Take 1 tablet every day by oral route. active Not Available Not Available No t Available hydrochlorothia zide 12.5 mg capsule Take 1 capsule every day by oral route. active Not Available Not Available No t Available cranberry fruit 400 mg capsule Take by oral route. active Not Available Not Available No t Available gabapentin 100 mg capsule Take 1 capsule 3 times a day by oral route. active Not Available Not Available No t Available Bactrim DS 800 mg-160 mg tablet Take 1 tablet every 12 hours by oral route for 7 days. 2020 active Not Available Not Available Not Avai lable Vitamin C active Not Available Not Cherise ilable Not Available calcium active Not Available Not Avail able Not Available Lactobacillus active Not Available Not Available Not Available Fish Oil active Not Available Not Avai lable Not Available Vitamin D3 active Not Available Not Av ailable Not Available Xarelto 15 mg tablet Take 1 tablet every day by oral route. active Not Available Not Available No t Available Vitamin B12 active Not Available Not A vailable Not Available Vitals Date Recorded Body weight Body temperature Heart rate Oxygen saturation Oxygen saturation in Arterial blood by Pulse oximetry Systolic blood pressure Diastolic blood pressure Provider Name and Address Organization Details Last Updated DateTime 1 54486.1 4 g 97.5 [degF] 72 /min 98 % 98 % 137 mm[Hg] 74 mm[Hg] Eligio Aguilar [facility], [facility] 1 10:02:49 Date Recorded Body weight Body temperature Heart rate Oxygen saturation Oxygen saturation in Arterial blood by Pulse oximetry Body mass index (BMI) Body height Systolic blood pressure Diastolic blood pressure Provider Name and Address Organization Details Last Updated DateTime 1 03273.7 1 g 98.2 [degF] 60 /min 98 % 98 % 21.7 kg/m2 160.02 cm 122 mm[Hg] 63 mm[Hg] Eligio Aguilar [facility], [facility] 09:23:16 Social History Question Answer Notes LastModified by Organizat ion Details LastModified Time Tobacco Smoking Status Former Smoker Eligio bonner [facility], [facility] 11/07/2020 10:06:13 How Much Tobacco Do You Chew? None [email or web address] Information not available 11/07/2020 Do You Or Have You Ever Used E-cigarettes Or Vape? Never Used Electronic Cigarettes [email or web address] Information not available 11/07/2020 Year Quit Tobacco Use 1992 [email or web address] Information not available 11/07/2020 What Was The Date Of Your Most Recent Tobacco Screening? 11/07/2020 [email or web address] Information not available 11/07/2020 Do You Or Have You Ever Used Smokeless Tobacco? Never Used Smokeless Tobacco Information not available 11/07/2020 How Much Tobacco Do You Smoke? No [email or web address] Information not available 11/07/2020 Sex: Unknown Functional Status None recorded. Mental Status None recorded. Family History Nothing Reported. Medical History No medical history recorded. Gynecological HistoryNo gynecological history recorded. Obstetrics History GPAL:G 0 P 0 0 0 0 Immunizations Vaccine Type Date Status Note Provider Nam e and Address Organization Details Recorded Time influenza, unspecified formulation 06/25/2015 [facility] 11/07/2020 09:53:31 Past Encounters Encounter ID Performer Location Encounter Start Date Encounter Closed Date Diagnosis/Indication Diagnosis SNOMED-CT Code Diagnosis ICD10 Code Diagnosis Note [id number] Sincere Lee [facility] [address] [facility] [place] [place] [address] 11/07/2020 09:52:10 11/07/2020 12:21:20 Dehydration 29134131 E86.0 [id number] Sincere Lee DO [facility] [address] [place] [address] 11/11/2020 08:58:01 11/11/2020 17:25:03 Urinary tract infectious disease 22167650 N39.0 patient's daughter had multiple questions that were addressed. patient instructed to be compliant Health Concerns Section Related Observation LastModified by Organization Detai ls LastModified Time None Recorded Concern Status LastModified by Organization Details LastModified Time None Recorded Advance Directives Directive None Recorded Payers Encounter Date Sequence Insurance Name Policy Number Policy Ortega Covered Member ID Ortega Member ID Guarantor Name 11/07/2020 1 MEDICARE-ID (MEDICARE) Gwendalyne T Tonsager [id number] 11/07/2020 2 [place] [id number] Gwendalyne T Tonsager [id number] 11/11/2020 1 MEDICARE-ID (MEDICARE) Gwendalyne T Tonsager [id number] 11/11/2020 2 [place] [id number] Gwendalyne T Tonsager [id number] Notes Date Note Type Note Provider Name and Address Organization Details Recorded Time 11/07/2020 text/html Transitional Car e Management (TCM)Reported bypatient.Reason for visit:TCM after hospitalization Discharge information:diagnosis: (dehydration, uti, electrolyte imbalance) Documents reviewed:TCM nurse non face to face documents reviewed; discharge summary; all hospital labs; all hospital diagnostics Medication Reconciliation:medicat ion list reviewed; medicaton reconciliation (provider reconciled the current and discharge medications); medications brought with patient at time of visit Current status:feeling fine Current symptoms/concerns:none stated Sincere Lee DO [address] [facility] [address], [place], [address], [facility] - [facility], [facility] 11/07/2020 10:10:11 11/11/2020 text/html complaintRepo rted bypatient.Reason for visit:acute complaint Quality:dysuria;urgenc y;frequency Severity:moderate 5/10 Alleviating factors:nothing Associated Symptoms:no fever; no discharge; no flank pain CORONAVIRUS SCREENING TOOL Fever Confirmation No Respiratory Illnesses No New / Worsened Respiratory Symptoms N/A Other New Symptoms None of the below Travel To Affected Areas No Coronavirus Diagnosis/Testing/Quar antine None of the below Coronavirus Test Date N/A Coronavirus Test Reason N/A Contact with Coronavirus No Imported from [facility] on 02/26/2020 Sincere Lee DO [address], [place], [address], [facility] - [facility], [facility] 11/11/2020 09:31:47 OBGyn Episode No OBEpisode recorded.
--- OUTSIDE RECORDS SUMMARY | 2024-12-02 18:17 | XMS_ITS | Clinical Summary ---
Author Organization [facility] Address [address] [place] [address] Care Team Providers Care Top Former Name Role Phone Toma Grayson Primary Care Provider [phone] Allergies No known active allergies Medications cyanocobalamin (VITAMIN B12) 1,000 mcg tabletIndications :B12 deficiency Take 1 Tablet (1,000 mcg) by mouth once daily. 90 Tablet 3 12/10/19 22 Active Multivitamin Cmb No.21-Iron-FA (Certavite-Antiox idant) 18-400 mg-mcg tab Take 1 Tablet by mouth once daily. 0 12/10/19 22 Active acetaminophen (TYLENOL EXTRA STRGTH) 500 mg tablet Take 1,000 mg by mouth every 6 hours if needed for Pain. Max acetaminophen dose: 4000mg in 24 hrs. Active ascorbic acid, vitamin C, (Vitamin C) 500 mg tablet Take 1 Tablet (500 mg) by mouth once daily. 0 12/15/19 22 Active Apple Cider Vinegar 500 mg tab Take by mouth. 08/30/20 23 Active Cranberry 500 mg cap Take 3 Capsules (1,500 mg) by mouth two times daily. 08/30/20 23 Active calcium carbonate-vitamin D3 1,000 mg-20 mcg (800 unit) tab Active cranberry conc-ascorbate calc 400-30 mg cap Take by oral route. Active rivaroxaban (Xarelto) 10 mg tabletIndications :Deep vein thrombosis (DVT) of proximal vein of left lower extremity, unspecified chronicity (HC),History of DVT (deep vein thrombosis) Take 1 Tablet (10 mg) by mouth once daily with evening meal. 100 Tablet 3 10/05/19 25 Active hydroCHLOROthiazi de 12.5 mg tabletIndications :Hypertension, unspecified type Take 1 Tablet (12.5 mg) by mouth once daily. 100 Tablet 2 11/20/19 25 Active simvastatin (ZOCOR) 10 mg tabletIndications :Mixed hyperlipidemia Take 1 Tablet (10 mg) by mouth at bedtime. 100 Tablet 2 11/20/19 25 Active gabapentin (NEURONTIN) 300 mg capsuleIndication s:Restless legs Take 1 Capsule (300 mg) by mouth at bedtime. 100 Capsule 2 11/20/19 25 Active metoprolol succinate (TOPROL XL) 50 mg sustained-release tabletIndications :Hypertension, unspecified type Take 1 Tablet (50 mg) by mouth once daily. 100 Tablet 2 11/20/19 25 Active nitrofurantoin macrocrystals/mon ohydrate (Macrobid) 100 mg capsuleIndication s:History of recurrent UTIs Take 1 Capsule (100 mg) by mouth once daily. 100 Capsule 2 11/21/19 25 Active gabapentin (NEURONTIN) 300 mg capsuleIndication s:Restless legs Take 1 Capsule (300 mg) by mouth at bedtime. 100 Capsule 3 10/05/19 25 025 Discontin ued(*Avai lability/ Formulary change/Co st of medicatio n) hydroCHLOROthiazi de 12.5 mg tabletIndications :Hypertension, unspecified type Take 1 Tablet (12.5 mg) by mouth once daily. 100 Tablet 3 10/05/19 25 025 Discontin ued(*Avai lability/ Formulary change/Co st of medicatio n) metoprolol succinate (TOPROL XL) 50 mg sustained-release tabletIndications :Hypertension, unspecified type Take 1 Tablet (50 mg) by mouth once daily. 100 Tablet 3 10/05/19 25 025 Discontin ued(*Avai lability/ Formulary change/Co st of medicatio n) nitrofurantoin macrocrystals/mon ohydrate (Macrobid) 100 mg capsuleIndication s:History of recurrent UTIs Take 1 Capsule (100 mg) by mouth once daily. 100 Capsule 3 10/05/19 25 03/04/2 025 Discontin ued(*Avai lability/ Formulary change/Co st of medicatio n) simvastatin (ZOCOR) 10 mg tabletIndications :Mixed hyperlipidemia Take 1 Tablet (10 mg) by mouth at bedtime. 100 Tablet 3 10/05/19 25 025 Discontin ued(*Avai lability/ Formulary change/Co st of medicatio n) Active Problems Problem Noted Date Diagnosed Date Prediabetes 09/02/2023 Chronic colitis 08/30/2022 Overview (08/30/2022): Previously on lialda(Mesalamine) - stopped due to CKD Consult GI 12/2020 - advised diagnostic colonoscopy if symptoms recur Complicated UTI (urinary tract infection) 2021 Abdominal pain 12/09/2021 Ureteral stone with hydronephrosis 12/09/2021 Recurrent UTI 08/29/2021 Overview (12/07/2021): Klebsiella - resistant to macrobid E coli resistant to TMP-Sulfa, ampicillin DNR no code (do not resuscitate) 08/27/2021 Stage 3b chronic kidney disease 03/02/2021 Overview (12/07/2021): Chronic pyuria but no proteinuria or hematuria. She was on Lialda for years - stopped with rise in creatinine Has years of HTN and chronic diarrhea with variable Cr based on volume status History of Clostridium difficile colitis 021 Overview (01/20/2021): 01/2021-recurrent C. difficile infection. Will retreat with vancomycin. History of DVT (deep vein thrombosis) 11/17/2020 Overview (08/30/2022): Vascular consult 05/2018 - anticoagulation [facility] Vitamin D deficiency 08/19/2017 Normocytic anemia 08/19/2017 Osteopenia of multiple sites 08/18/2017 Personal history of malignant melanoma of skin 1 10/18/2016 Overview (08/18/2017): 2001 Colitis 12/24/2015 Overview (12/24/2015): Colonoscopy 12/2012 in [place] - started on ASACOL then mesalamine Multiple sclerosis 12/15/2015 Pulmonary nodule 06/30/2015 Overview (08/25/2020): CT 09/01 -- follow up stable CT 2015 - stable - had biopsy finding necrotizing granuloma Hypertension 06/27/2014 Intestinal infection due to Clostridium difficil e 04/24/2012 Overview (12/07/2021): Recurrent infections: 02/05/21 10/31/2020 ([place]) after treatment for UTI February and April 2012 Colonic ulcer 09/09/2011 Overview (09/09/2011): Colonoscopy 08/2011 multiple small erosions from Aleve repeat in 5 years Helicobacter pylori (H. pylori) 07/02/2011 Overview (07/02/2011): EGD 06/2011 hpylori Mixed hyperlipidemia 02/11/2011 Overview (02/11/2011): Noted on Office visit of GERD (gastroesophageal reflux disease) 0 Urinary urgency 06/22/2010 Personal history of rectal cancer 05/22/2008 Overview (06/30/2015): Colonoscopy in 2013 ([place]) - repeat in 5 years recommended Resolved Problems Problem Noted Date Diagnosed Date Resolved Date History of Clostridioides difficile infection 12/11/1909/02/2023 Anticoagulation monitoring, DOAC 07/09/2019 02/21/2023 Anticoagulation monitoring, INR range 2-3 12/26/2018 07/06/2019 Deep vein thrombosis (DVT) o f proximal vein of left lower extremity, unspecified chronicity 12/25/2018 08/29/2021 Overview (07/03/2019): Vascular consult 05/2018 Chronic anticoagulation suggested Renal insufficiency 12/15/2015 07/22/20 Overview (07/03/2019): Renal consult 2015 - improved off of MS meds and decreased mesalamine, stopped use of NSAIDS and diuretic Encounters Date Type Department Care Team Description 11/19/2024 Refill [facility] [address] [place] [address] Toma Grayson PA Refill Request (Nitrofurantoin Macrocrystals/monohy drate) 11/16/2024 Refill [facility] [address] [place] [address] Toma Grayson PA Refill Request (Hydrochlorothiazide , Simvastatin, Gabapentin, Metoprolol Succinate) 10/05/2024 8:10 AM [employer]AGING SAL[employer] Office Visit [facility] [address] [place] [address] Toma Grayson PA Medicare ANNUAL (subsequent) Visit 10/05/2024 Travel 09/12/2024 Refill [facility] [address] [place] [address] Toma Grayson PA Refill Request (Simvastatin, Gabapentin, Hydrochlorothiazide, Metoprolol Succinate) 09/07/2024 1:20 PM [employer]ING [employer] Office Visit [facility] [address] [place] [address] Christine Mittal PA Urinary Problem (Was treated for UTI around Thansgiving, was feeling better and now feeling like infection is back. Dysuria, not feeling like bladder is emptying.); Sinus Problem (congestion) 09/07/2024 Refill [facility] [address] [place] [address] Toma Grayson PA Refill Request (Metoprolol Succinate, Gabapentin, Xarelto, Hydrochlorothiazide, Simvastatin) 09/07/2024 Travel 09/03/2024 Nurse Triage [facility] [address] [place] [address] Toma Grayson PA Urinary Problem from Last 3 Months Immunizations Immunization Administration Dates Next Due COVID-19 vaccine (Moderna 100mcg/0.5mL) PF, MDV 12/10/2020,11/12/2020 Influenza Virus, Unspecified 06/25/2015 Influenza, High-dose Inactivated 024,06/29/2018,07/01/2016,06/30,06/27/2014 Influenza, High-dose Quadriv alent Inactivated 07/27/2023,07/06/2022,06/12/2020 Influenza, IIV3 (Age 6-35 mos) 06/24/2011 Influenza, IIV3 (Age >=3 years) 06/25/20 13,06/23/2012,06/24/2011,06/22,06/20/2009,07/26/2005,07/01/1999 Influenza, Inactivated AIIV4 (Age 65+ Years) Preserv Free 06/17/2021 Influenza, Inactivated IIV3 (Age 65+ Years) Preserv Free 06/14/2019,08/18/2017 Pneumococcal Poly,23-Valent (Pneumovax) 07/08/2009,07/14/1999 Pneumococcal conj 13-Valent (Prevnar 13) 06/30/2015 RSV, Bivalent Vaccine Recons tituted (Abrysvo 120MCG/0.5mL) 07/27/2023 Td (Age >=7 Years) 09/25/1998 Tdap 07/30/2024,05/30/2007 Zoster (Shingrix-RZV, recombinant) 07/30/2024 Zoster (Zostavax-ZVL, live) 05/31/2008 Family History Medical History Relation Name Comments Hypertension Brother Heart Disease Mother Multiple sclerosis Mother Osteoporosis Mother Cancer-breast Other 4 nieces on pa ternal side Cancer Paternal Grandfather stomach Other Sister 1 MS Hypertension Sister 2 Relation Name Status Comments Brother Mother Other Paternal Grandfather Sister 1 Sister 2 Social History Tobacco Use Types Packs/Day Years Used Date Smoking Tobacco: Former Cigarettes Q uit: 09/19/1987 Smokeless Tobacco: Never Tobacco Cessation:Counseling Given: Yes Alcohol Use Standard Drinks/Week Comments No 0 (1 standard drink = 0.6 oz pur e alcohol) PHQ-2 Answer Date Recorded PHQ-2 TOTAL SCORE 0 10/05/2024 Social Connections Answer Date Recorded Do you often feel lonely or isolated from those around you? 0 08/15/2024 Financial Resource Strain Answer Date R ecorded Difficulty of Paying Living Expenses 3 08/15/2024 Difficulty of Paying Living Expenses Not on file 08/15/2024 Food Insecurity Answer Date Recorded Do you worry your food will run out before you are able to buy more? 1 08/15/2024 Transportation Needs Answer Date Record ed Does lack of transportation keep you from medica l appointments? 1 08/15/2024 Does lack of transportation keep you from work, meetings or getting things that you need? 1 08/15/2024 Housing Stability Answer Date Recorded What is your housing situation today? 1 08/15/2024 Utilities Answer Date Recorded Do you have trouble paying f or utilities (for example, heat, electricity, water, phone)? 1 08/15/2024 Comments No Sex and Gender Information Value Date Recorded Sex Assigned at Not on file Legal Sex Female 6:17 AM [employer] Gender Identity Not on file Sexual Orientation Not on file Obstetrics History Para Term AB IAB SAB Ectopic Multiple Livin g Live Births 4 3 3 0 1 0 1 0 0 3 3 Date Outcome GA Total Labor Labor/2nd/3rd Weight Sex Type Anes PTL Idania A1 A5 Name Clin Term Living Term Living Term Living SAB Last Filed Vital Signs Vital Sign Reading Time Taken Comments Blood Pressure 175/89 10/05/2024 8:24 AM [employer] Pulse 59 10/05/2024 8:24 AM [employer] Temperature 36.7 C (98.1 F) 01/04/2022 9:50 AM CDT Respiratory Rate 16 01/18/2022 12:58 PM CDT Oxygen Saturation 100% 10/05/2024 8:24 AM [employer] Inhaled Oxygen Concentration - - Weight 58.1 kg (128 lb) 10/05/2024 8:24 AM [employer] Height 156.1 cm (5' 1.46) 10/05/2024 8:24 AM CS T Body Mass Index 23.83 10/05/2024 8:24 AM [employer] Plan of Treatment Health Maintenance Due Date Last Done Comments Zoster (shingles) series for age 50+ (3 of 3) 09/24/2024 07/30/2024, 05/31/2008 COVID-19 vaccine series ( season) 2025 07/30/2024, 07/27/2023, 07/06/2022, Additional history exists BMI (ht and wt on same day) for age 18+ 10/05/2025 10/05/2024, 08/30/2023, 03/15/2023, Additional history exists Depression screening for age 12+ 10/05/2025 10/05/2024, 08/30/2023, 08/30/2022, Additional history exists Medicare Wellness for age 65+ 10/06/2025, 08/30/2023, 08/30/2022, Additional history exists Tetanus booster 07/30/2034 07/30/2024, 05/20, 09/25/1998 Pneumococcal series for age 50+ Completed 06/30/2015, 07/08/2009, 07/14/1999 DEXA/DXA scan for age 65+ Completed 2017, 06/29/2011, 05/30/2007 RSV vaccine for adults or Completed 07/27/2023 Influenza Vaccine Completed 07/30/2024, , 06/14/2019, Additional history exists Tdap Completed 07/30/2024, 05/30/2007 Medical Devices Implanted Type Area Physician Industrial Device Identifier Shelf Expiration Date Model / Serial / Lot Stent Uret [id number] Contour - [id number] Implanted:Qty: 1 on 12/10/2021 by Olu Patel MD at [facility] Right: [employer] [place] [facility] [id number] / / [id number] Procedures Procedure Name Priority Date/Time Associated Diagnosis Comments COMP METABOLIC PANEL Routine 10/05/2024 8:55 AM [employer] Hypertension, unspecified type LIPID PANEL W REFLEX MEASURED LDL Routine 10/05/2024 8:55 AM [employer] Mixed hyperlipidemia HEMOGLOBIN A1C Routine 10/05/2024 8:55 AM [employer] Prediabetes CBC WITH AUTO DIFFERENTIAL Routine 10/05/2024 8:55 AM [employer] High risk medication use URINALYSIS MACROSCOPIC - [facility] ONLY POC DIP ([facility]) Routine 09/07/2024 1:42 PM [employer] Dysuria URINE CULTURE Routine 09/07/2024 1:35 PM [employer] Dysuria URINALYSIS MICROSCOPIC Routine 09/07/2024 1:35 PM [employer] Dysuria XR DXA BONE DENSITY 2 SITES AXIAL Routine 08/21/2018 11:20 AM [employer] Osteopenia of multiple sites from Last 3 Months or Most Recently Relevant to Health Maintenance Results * (ABNORMAL) HEMOGLOBIN A1C (10/05/2024 8:55 AM [employer]) HEMOGLOBIN A1C 6.0(H) <5.7 % of total Hgb [facility] Comment: For someone without known diabetes, a hemoglobin A1c value between 5.7% and 6.4% is consistent with prediabetes and should be confirmed with a follow-up test. For someone with known diabetes, a value <7% indicates that their diabetes is well controlled. A1c targets should be individualized based on duration of diabetes, age, comorbid conditions, and other considerations. This assay result is consistent with an increased risk of diabetes. Currently, no consensus exists regarding use of hemoglobin A1c for diagnosis of diabetes for children. Blood BLOOD SPECIMEN / Unknown 10/05/2024 8:55 AM [employer]ING SALES 10/05/2024 8:55 AM [employer]AGING SALES Toma MEREDITH CHEMISTRY Final Resu lt [facility] [address] [place] [address], [facility] [address] [place] [address] * (ABNORMAL) LIPID PANEL W REFLEX MEASURED LDL (10/05/2024 8:55 AM [employer]) CHOLESTEROL, TOTAL 161 <200 mg/dL [facility] HDL CHOLESTEROL 64 > OR = 50 mg/dL [facility] TRIGLYCERIDES 150(H) <150 mg/dL [facility] LDL-CHOLESTEROL 74 mg/dL (calc) [facility] Comment: Reference range: <100 Desirable range <100 mg/dL for primary prevention; <70 mg/dL for patients with CHD or diabetic patients with > or = 2 CHD risk factors. LDL-C is now calculated using the Leslye calculation, which is a validated novel method providing better accuracy than the Friedewald equation in the estimation of LDL-C. Micheal ROMERO et al. ROSA. 2013;310(19): 5551-2988 (http://education.Silver Push/faq/OLZ337) CHOL/HDLC RATIO 2.5 <5.0 (calc) [facility] NON HDL CHOLESTEROL 97 <130 mg/dL (calc) [facility] Comment: For patients with diabetes plus 1 major ASCVD risk factor, treating to a non-HDL-C goal of <100 mg/dL (LDL-C of <70 mg/dL) is considered a therapeutic option. Blood BLOOD SPECIMEN / Unknown 10/05/2024 8:55 AM [employer] SALES 10/05/2024 8:55 AM [employer]ING SALES Toma MEREDITH CHEMISTRY Final Resu lt Code [facility] [address] [place] [address], [facility] [address] [place] [address] * CBC AND DIFFERENTIAL (10/05/2024 8:55 AM [employer]ING SAL[employer]) WHITE BLOOD CELL COUNT 7.7 3.8 - 10.8 Thousand/u L [facility] RED BLOOD CELL COUNT 3.95 3.80 - 5.10 Million/uL [facility] HEMOGLOBIN 12.0 11.7 - 15.5 g/dL [facility] HEMATOCRIT 37.2 35.0 - 45.0 % [facility] MCV 94.2 80.0 - 100.0 fL [facility] MCH 30.4 27.0 - 33.0 pg [facility] MCHC 32.3 32.0 - 36.0 g/dL [facility] Comment: For adults, a slight decrease in the calculated MCHC value (in the range of 30 to 32 g/dL) is most likely not clinically significant; however, it should be interpreted with caution in correlation with other red cell parameters and the patient's clinical condition. RDW 12.0 11.0 - 15.0 % [facility] PLATELET COUNT 267 140 - 400 Thousand/u L [facility] MPV 11.7 7.5 - 12.5 fL [facility] ABSOLUTE NEUTROPHILS 4,335 1,500 - 7,800 cells/uL [facility] ABSOLUTE LYMPHOCYTES 2,241 850 - 3,900 cells/uL [facility] ABSOLUTE MONOCYTES 809 200 - 950 cells/uL [facility] ABSOLUTE EOSINOPHILS 262 15 - 500 cells/uL [facility] ABSOLUTE BASOPHILS 54 0 - 200 cells/uL [facility] NEUTROPHILS 56.3 % [facility] LYMPHOCYTES 29.1 % [facility] MONOCYTES 10.5 % [facility] EOSINOPHILS 3.4 % [facility] BASOPHILS 0.7 % [facility] Blood BLOOD SPECIMEN / Unknown 10/05/2024 8:55 AM [employer] 10/05/2024 8:55 AM [employer]AGING SALES Toma MEREDITH HEMATOLOGY Final Resu lt Code [facility] [address] [place] [address], [facility] [address] [place] [address] * COMP METABOLIC PANEL (10/05/2024 8:55 AM [employer]) GLUCOSE 82 65 - 99 mg/dL [facility] Comment: Fasting reference interval UREA NITROGEN (BUN) 15 7 - 25 mg/dL [facility] CREATININE 0.81 0.60 - 0.95 mg/dL [facility] EGFR 73 > OR = 60 mL/min/1. 73m2 [facility] BUN/CREATININE RATIO SEE NOTE: 6 - 22 (calc) [facility] Comment: Not Reported: BUN and Creatinine are within reference range. SODIUM 139 135 - 146 mmol/L [facility] POTASSIUM 3.9 3.5 - 5.3 mmol/L [facility] CHLORIDE 102 98 - 110 mmol/L [facility] CARBON DIOXIDE 32 20 - 32 mmol/L [facility] CALCIUM 9.3 8.6 - 10.4 mg/dL [facility] PROTEIN, TOTAL 7.2 6.1 - 8.1 g/dL [facility] ALBUMIN 4.1 3.6 - 5.1 g/dL [facility] GLOBULIN 3.1 1.9 - 3.7 g/dL (calc) [facility] ALBUMIN/GLOBULIN RATIO 1.3 1.0 - 2.5 (calc) [facility] BILIRUBIN, TOTAL 0.5 0.2 - 1.2 mg/dL [facility] ALKALINE PHOSPHATASE 74 37 - 153 U/L [facility] AST 29 10 - 35 U/L [facility] ALT 16 6 - 29 U/L [facility] Blood BLOOD SPECIMEN / Unknown 10/05/2024 8:55 AM [employer] 10/05/2024 8:55 AM [employer]ING SALES Toma MEREDITH CHEMISTRY Final Resu lt Code [facility] [address] [place] [address], [facility] [address] [place] [address] * (ABNORMAL) POCT Urinalysis Dipstick Only (09/07/2024 1:42 PM [employer]ING SAL[employer]) [facility] PH 7.0 5.0 - 8.0 [facility] SPECIFIC GRAVITY 1.010 1.001 - 1.035 [facility] GLUCOSE NEGATIVE NEGATIVE [facility] BILIRUBIN NEGATIVE NEGATIVE [facility] KETONES NEGATIVE NEGATIVE [facility] OCCULT BLOOD 2+(A) NEGATIVE [facility] PROTEIN NEGATIVE NEGATIVE [facility] NITRITE POSITIVE(A) NEGATIVE [facility] LEUKOCYTE ESTERASE 2+(A) NEGATIVE [facility] Urine URINE SPECIMEN / Unknown 09/07/2024 1:42 PM [employer] 09/07/2024 1:43 PM [employer] SAL[employer] Christine MEREDITH URINE Final R esult [facility] [address] [place] [address], [facility] [address] [place] [address] * (ABNORMAL) URINALYSIS MICROSCOPIC (09/07/2024 1:35 PM [employer]) RBC 3-5(A) 0-2, None Seen /HPF 09/07/2024 11:20 PM [employer]AGING SALES [facility] WBC >100(A) 0-2, 3-5, None Seen /HPF 09/07/2024 11:20 PM [employer]AGING SALES [facility] BACTERIA Moderate(A ) None Seen, Rare, Few Bacteria/ HPF 09/07/2024 11:20 PM [employer]AGING SALES [facility] EPITHELIAL CELLS None Seen None Seen, Few Epi/HPF 09/07/2024 11:20 PM [employer]AGING SALES [facility] HYALINE CASTS 0-2 0-2, 3-5 /LPF 09/07/2024 11:20 PM [employer]ES [facility] Urine URINE SPECIMEN / Unknown Non-Blood / Unknown 09/07/2024 1:35 PM [employer] 09/07/2024 1:41 PM [employer]AGING SALES Christine MEREDITH URINE Final R esult [facility] [address] [place] [address], * (ABNORMAL) URINE CULTURE (09/07/2024 1:35 PM [employer]AGING SALES) CULTURE RESULT(A) 09/10/2024 7:45 AM PACKAGING SALES [facility] CULTURE >100,000 CFU/mL Escherichia coli 09/10/2024 7:45 AM PACKAGING SALES [facility] Urine URINE SPECIMEN / Unknown Non-Blood / Unknown 09/07/2024 1:35 PM [employer]AGING SALES 09/07/2024 1:41 PM [employer]AGING SALES Narrative Organism Antibiotic Method Susceptibility Escherichia coli TRIMETHOPRIM/SULF <=10/07: S Escherichia coli AMPICILLIN 4: S Escherichia coli CEFAZOLIN <=1: S Escherichia coli CEFAZOLIN-UC <=1: S Comment:Cefazolin-UC interpretations are for therapy of uncomplicated UTIs due to E.coli, K.pneumoniae, or P.mirablis. Cefazolin breakpoint is used as a surrogate to predict results for the oral agents - cefdinir, cefuroxime, and cephalexin, when used for therapy of uncomplicated UTIs due to E coli, K, pneumoniae, and P. mirabilis. The FDA recommends cefadroxil susceptibility can be deduced from cefazolin. Escherichia coli GENTAMICIN <=1: S Escherichia coli CEFTRIAXONE <=0.25: S Escherichia coli CEFTAZIDIME <=0.5: S Escherichia coli LEVOFLOXACIN <=0.12: S Escherichia coli CIPROFLOXACIN <=0.06: S Escherichia coli PIPERACILLIN/TAZO <=4: S Escherichia coli AMPICILLIN/SULBACTAM <=2: S Escherichia coli CEFEPIME <=0.12: S Escherichia coli MEROPENEM <=0.25: S Escherichia coli NITROFURANTOIN 256: R Christine MEREDITH MICROBIOLOGY Final R esult [facility] [address] [place] [address], * (ABNORMAL) XR DXA BONE DENSITY 2 SITES AXIAL (08/21/2018 11:20 AM [employer]ING SALES) Anatomical Region Laterality Modality Spine, HIPS, HIPL, HIPR Other Narrative 08/23/2018 3:46 PM [employer] Please see scanned document for results of this study. Maye Slaughter MD DEXA Final Result from Last 3 Months or Most Recently Relevant to Health Maintenance Additional Health Concerns Infection Onset Date Last Indicated CLOSTRIDIUM DIFFICILE Comment:Provider note indicates +C.diff during 11/29/2021-12/02 admission to [facility]. Unable to verify in chart. Place in Enteric Precautions while loose stools continue. 01/19/2021 01/19/2021 Insurance [facility] Advance Directives * DNR (Latest Code Status on File) Date Activated Date Inactivated Comments 12/09/2021 5:08 PM 12/11/2021 6:02 PM Reviewed nabila or ACP Question Answer Comments Code Status Discussion: Reviewed Preferences Care Teams Top Former Relationship Specialty Start Date End Date Toma Grayson PA [address] [place] [address] PCP - General Physician [employer] 04/14/23
[2024-12-02 18:46] LABS: Appearance Urine Clear (Clear); Bilirubin Urine Negative (Negative); Blood Urine 2+ (Negative); Color Urine Yellow (Yellow); Glucose Urine Negative (Negative); Ketones Urine Negative (Negative); Leukocyte Esterase Urine 1+ (Negative); Nitrite Urine Positive (Negative); Protein Urine 2+ (Negative); Urobilinogen Urine 0.2 (0.2-1.0); pH Urine 6.5 (5.0-8.5)
--- NOTE | 2024-12-02 18:50 | CRLHL7_ITS ---
For Patients: As a result of the Cures Act, medical imaging exams and procedure reports are released immediately into your electronic medical record. You may view this report before your referring provider. If you have questions, please contact your health care provider. INDICATION: : trauma, ? c spine fx. COMPARISON: Chest radiograph on May 01, 2024 and priors TECHNIQUE: Two view(s) of the chest FINDINGS: The cardiomediastinal silhouette and pulmonary vasculature are unremarkable. There is no focal airspace consolidation, pleural effusion, or pneumothorax. No displaced fractures. IMPRESSION: No acute cardiopulmonary process. Dictated by Paulie Ford MD @ 12/02/2024 7:38:35 PM (Electronically Signed)
[2024-12-02 19:12] LABS: WBC Clumps Urine Moderate; WBC Urine >100 (0-5)
[2024-12-02 19:13] LABS: Bacteria Urine Many; Squamous Epithelial Cell Urine Moderate (None-Few)
--- NOTE | 2024-12-02 19:13 | ED_ITS ---
HPI - General Adult General Chief complaint: Fever Stated complaint: Shaking, feels faint, Fever, weakness Time Seen by Provider: 12/02/24 18:22 Source: patient and family Mode of arrival: ambulatory Limitations: no limitations History of Present Illness HPI narrative: 79-year-old female presenting today with fever and weakness that started this afternoon after she woke up from a nap. Patient was in her usual state of health this morning. She went to a birthday constitution party and felt increased fatigue during the constitution party. She went home took a nap and when she woke up she felt very weak and noticed that she had a fever. Since then she has had rigors and uncontrollable shaking. She states that this has happened her in the past when she has developed UTIs. She is supposed to be taking Macrobid 100 mg daily but she ran out approximately 1 week ago. She denies chest pain or shortness of breath. She has not been coughing. She denies abdominal pain. She denies dysuria or urinary frequency. She does describe urgency with little urinary output. She has no diarrhea or constipation. No skin rashes that she is aware of. No sick contacts that she is aware. She denies any flank pain. Patient does have a history of MS and chronic renal disease. She does live by herself. Daughter lives 8 houses down. Related Data Home Medications ?Medication ?Instructions ?Recorded ?Confirmed gabapentin 300 mg capsule 300 mg PO DAILY 08/16/22 12/02/24 hydrochlorothiazide 12.5 mg tablet 12.5 mg PO DAILY 08/16/22 12/02/24 metoprolol succinate 50 mg 50 mg PO DAILY 08/16/22 12/02/24 tablet,extended release 24 hr nitrofurantoin 100 mg PO DAILY 08/16/22 12/02/24 monohydrate/macrocrystals 100 mg capsule simvastatin 10 mg tablet 10 mg PO HS 08/16/22 12/02/24 rivaroxaban 10 mg tablet (Xarelto) 10 mg PO DAILY 05/26/23 12/02/24 Previous Rx's ?Medication ?Instructions ?Recorded nirmatrelvir 150 mg-ritonavir 100 See Rx Instructions PO .COMPLEX 05/01/24 mg tablets in a dose pack #20 ea (Paxlovid) cefuroxime axetil 500 mg tablet 500 mg PO BID #14 tabs 08/14/24 Allergies Allergy/AdvReac Type Severity Reaction Status Date / Time No Known Drug Allergies Allergy Verified 12/02/24 18:34 Review of Systems Status of ROS: Reports: 10 or more systems reviewed and unremarkable except as noted in History and below [facility] Medical History Pre-diabetes ?R73.03 - Prediabetes (ICD-10) Chronic anticoagulation ?Z79.01 - care home (current) use of anticoagulants (ICD-10) History of DVT (deep vein thrombosis) ?Z86.718 - Personal history of other venous thrombosis and embolism (ICD-10) Recurrent UTI ?N39.0 - Urinary tract infection, site not specified (ICD-10) CKD stage 3b, GFR 30-44 ml/min ?N18.32 - Chronic kidney disease, stage 3b (ICD-10) Multiple sclerosis ?G35 - Multiple sclerosis (ICD-10) Normocytic anemia ?D64.9 - Anemia, unspecified (ICD-10) Chronic colitis ?K52.9 - Noninfective gastroenteritis and colitis, unspecified (ICD-10) History of Clostridioides difficile colitis ?Z86.19 - Personal history of other infectious and parasitic diseases (ICD- 10) History of rectal cancer ?Z85.048 - Personal history of other malignant neoplasm of rectum, rectosigmoid junction, and anus (ICD-10) GERD (gastroesophageal reflux disease) ?K21.9 - Gastro-esophageal reflux disease without esophagitis (ICD-10) Hyperlipidemia ?E78.5 - Hyperlipidemia, unspecified (ICD-10) Hypertension ?I10 - Essential (primary) hypertension (ICD-10) Pneumonia ?J18.9 - Pneumonia, unspecified organism (ICD-10) URI (upper respiratory infection) ?J06.9 - Acute upper respiratory infection, unspecified (ICD-10) Sore throat ?J02.9 - Acute pharyngitis, unspecified (ICD-10) Cough ?R05.9 - Cough, unspecified (ICD-10) Social History What is your current living situation?: I presently have a place to live Problems where you live: no known problems Problems where you live details: home alone with daughter living nearby In the past 12 months, utilities in danger of being shut off: no In past 12 months, lack of transportation kept you from medical appts, meetings, work, or getting things needed for daily living: no In the past 12 mos, have been you worried that your food would run out before you had money to buy more?: never true In the past 12 mos, the food you bought just didn't last and you didn't have money to buy more?: never true Smoking Status: Former smoker Do you use any of these nicotine containing products: None Second hand tobacco smoke exposure: No How often do you have a drink containing alcohol: 2-4 times a month Alcohol type: beer How many standard drinks containing alcohol do you have on a typical day: 1 or 2 How often do you have six or more drinks on one occasion: Never AUDIT-C Alcohol total score: 2 Non-prescribed substance use: denies use Caffeine: No How often does anyone, including family, friends and others, physically hurt you : never How often does anyone, including family, friends and others, insult or talk down to you: never How often does anyone, including family, friends and others, threaten you with harm: never How often does anyone, including family, friends and others, scream or curse at you: never service: No Exam Narrative: Exam Narrative: Thin, elderly patient in no acute distress, shivering. Alert and oriented. Answers questions appropriately. Mood and affect are appropriate. Thoughts are goal oriented and rational. No tangential or magical thinking noted. Patient speaks in full sentences without needing to catch her breath. HEENT: Normocephalic atraumatic. Pupils are equally round reactive to light. Extraocular muscles are intact. Conjunctivae are moist without any icterus noted. Moist mucous membranes. Posterior pharynx is normal. Neck is soft without any lymphadenopathy or thyromegaly. No masses are appreciated. Cardiovascular: Heart is regular rate and rhythm S1 and S2 are present without any murmurs. Lungs: Clear to auscultation bilaterally no wheezes rhonchi or rales are appreciated. Patient takes deep breaths without any discomfort. Abdomen: Soft and nontender nondistended with normal bowel sounds. No guarding or rebound. No masses or organomegaly appreciated. Extremities: Bilateral lower extremities are without edema. Skin: Well perfused without any obvious rashes. Const: Vital Signs, click to edit/add: Vital Signs - 24 hr 12/02/24 18:28 12/02/24 19:54 12/02/24 19:56 Temperature 101.8 F H 103.1 F H Pulse Rate [Right Pulse Oximeter] 90 98 Respiratory Rate 18 18 Blood Pressure [Ri ght Upper Arm] 127/84 152/78 H Pulse Oximetry 94 91 Oxygen Delivery Me thod Room Air 12/02/24 20:01 Temperature Pulse Rate [Right Pulse Oximeter] Respiratory Rate Blood Pressure [Ri ght Upper Arm] Pulse Oximetry 98 Oxygen Delivery Me thod Course Course ED Course: CBC shows an elevated white cell count 11.65. Chemistries are unremarkable. CRP elevated at 3.7. UA grossly positive for signs of infection with 2+ blood, positive nitrites, +leukocyte esterase, greater than 100 wbc's. Patient given 1 dose of IV Zosyn and Tylenol. After treatment patient's temperature unfortunately increased to 103.1 from 1010.8. She otherwise remained hemodynamically stable. Patient does live by herself. At this time I do feel that it would be unsafe for the patient to be discharged home. Patient is quite weak and requiring assistance. Vital Signs Vital signs: Initial Vital Signs Temperature 101.8 F H 12/02/24 18:28 Temperature Source Temporal Artery Scan 12/02/24 18:28 Pulse Rate 90 12/02/24 18:28 Pulse Rhythm Regular 12/02/24 18:28 Pulse Strength 3+ Normal 12/02/24 18:28 Respiratory Rate 18 12/02/24 18:28 Blood Pressure 127/84 12/02/24 18:28 Blood Pressure Mean 98 12/02/24 18:28 Blood Pressure Position Sitting 12/02/24 18:28 Pulse Oximetry 94 12/02/24 18:28 Oxygen Delivery Method Room Air 12/02/24 18:28 Vital Signs Temperature 101.8 F H 12/02/24 18:28 Pulse Rate 90 12/02/24 18:28 Respiratory Rate 18 12/02/24 18:28 Blood Pressure 127/84 12/02/24 18:28 Pulse Oximetry 94 12/02/24 18:28 Oxygen Delivery Method Room Air 12/02/24 18:28 Temperature 103.1 F H 12/02/24 19:56 Pulse Rate 98 12/02/24 19:54 Respiratory Rate 18 12/02/24 19:54 Blood Pressure 152/78 H 12/02/24 19:54 Pulse Oximetry 98 12/02/24 20:01 Oxygen Delivery Method Room Air 12/02/24 18:28 Medications Administered Medications: Discontinued Medications Generic Name Dose Route Start Last Admin Trade Name Meena PRN Reason Stop Dose Admin Acetaminophen 1,000 mg 12/02/24 18:50 12/02/24 19:30 Acetaminophen 500 Mg Tablet PO 12/02/24 18:51 1,000 mg ONCE ONE Administration Piperacillin Sod/Tazobactam 100 mls @ 200 mls/hr 12/02/24 18:52 12/02/24 20:09 Sod 3.375 gm/ Sodium Chloride IVPB 12/02/24 18:53 Infused ONCE ONE Infusion Medical Decision Making MDM Narrative Medical decision making narrative: 79-year-old female with a history of MS and recurrent UTIs presenting with complicated UTI, weakness and fever. Patient will be admitted for further management. Lab Data Lab results reviewed: Yes I reviewed the patient's lab results Labs: Lab Results 12/02/24 12/02/24 Range/Units 18:40 19:05 WBC 11.65 H (4.50-11.00) K/uL RBC 3.85 L (4.00-5.20) m/uL Hgb 11.4 L (12.0-16.0) gm/dL Hct 36.5 (33.0-51.0) % MCV 95 (80-100) fL MCH 30 (26-34) pg MCHC 31 L (32-36) gm/dL RDW Coeff of Clotilde 13.7 (11.5-15.5) % Plt Count 212 (140-440) K/uL Neut % (Auto) 84.2 H (42.0-72.0) % Lymph % (Auto) 11.2 L (20-44) % Burleigh % (Auto) 3.6 (0.0-11.0) % Eos % (Auto) 0.5 (0.0-7.0) % Baso % (Auto) 0.3 (0.0-3.0) % Neut # (Auto) 9.80 H (1.7-7.0) K/uL Lymph # (Auto) 1.30 (0.90-2.90) K/uL Burleigh # (Auto) 0.40 (0.00-0.90) K/UL Eos # (Auto) 0.10 (0.00-0.50) K/uL Baso # (Auto) 0.00 (0.00-0.30) K/uL Abs Immat Gran (auto) 0.00 (0.00-0.30) K/uL Imm/Tot Granulo (auto) 0.2 % Sodium 136 (135-149) mmol/L Potassium 3.8 (3.6-5.1) mmol/L Chloride 100 (96-114) mmol/L Carbon Dioxide 27 (20-32) mmol/L Anion Gap 9 (7-15) mEq/L BUN 16 (7-30) mg/dL Creatinine 0.9 (0.5-1.5) mg/dL Estimated Creat Clear 37.12 Estimated GFR 65 ml/min Glucose 102 (60-115) mg/dL Lactate 1.4 (0.5-1.9) mmol/L Calcium 9.0 (8.4-10.6) mg/dL Total Bilirubin 0.6 (0.1-1.5) mg/dL Direct Bilirubin 0.3 (0.0-0.5) mg/dL AST 34 (12-35) U/L ALT 17 (4-35) U/L Alkaline Phosphatase 74 (40-150) U/L C-Reactive Protein 3.7 H (0.5-1.0) mg/dL Total Protein 7.8 (6.0-8.3) g/dL Albumin 4.3 (3.3-5.0) g/dL Urine Color Yellow (Yellow) Urine Appearance Clear (Clear) Urine pH 6.5 (5.0-8.5) Ur Specific Bath 1.020 (1.000-1.030) Urine Protein 2+ A (Negative) Urine Glucose (UA) Negative (Negative) Urine Ketones Negative (Negative) Urine Blood 2+ A (Negative) Urine Nitrite Positive A (Negative) Urine Bilirubin Negative (Negative) Urine Urobilinogen 0.2 (0.2-1.0) Ur Leukocyte Esterase 1+ A (Negative) Urine RBC 2-5 A (0-2) Urine WBC >100 A (0-5) Urine WBC Clumps Moderate A (None) Ur Squamous Epith Cells Moderate A (None-Few) Urine Bacteria Many A (None) SARS-CoV-2 (PCR) Negative SARS-CoV-2 (Negative) Influenza Type A (PCR) Negative PCR FLU A (Negative) Influenza Type B (PCR) Negative PCR FLU B (Negative) RSV (PCR) Negative PCR RSV (Negative) Imaging Data Chest x-ray: Attestation: I have reviewed the pertinent imaging results. Radiologist's impression: COMPARISON: Chest radiograph on May 01, 2024 and priors TECHNIQUE: Two view(s) of the chest FINDINGS: The cardiomediastinal silhouette and pulmonary vasculature are unremarkable. There is no focal airspace consolidation, pleural effusion, or pneumothorax. No displaced fractures. IMPRESSION: No acute cardiopulmonary process. Discharge Plan Discharge Clinical Impression: Acute UTI, Weakness, Fever Patient Disposition: Admitted As Observation Condition: Stable
[2024-12-02 19:22] LABS: Lactate* 1.4 mmol/L (0.5-1.9)
[2024-12-02 19:30] LABS: Basophils Percent Auto 0.3 % (0.0-3.0); Eosinophils Percent Auto 0.5 % (0.0-7.0); Hematocrit 36.5 % (33.0-51.0); Hemoglobin* 11.4 gm/dL (12.0-16.0); Immature Granulocytes Pct Auto 0.2 %; Lymphocytes Percent Auto 11.2 % (20-44); Mean Corpuscular HGB Conc 31 gm/dL (32-36); Mean Corpuscular Hemoglobin 30 pg (26-34); Mean Corpuscular Volume 95 fL (80-100); Monocytes Percent Auto 3.6 % (0.0-11.0); Neutrophils Percent Auto 84.2 % (42.0-72.0); Platelet Count* 212 K/uL (140-440); RDW Coefficient of Variation % 13.7 % (11.5-15.5); Red Blood Count 3.85 m/uL (4.00-5.20); White Blood Count* 11.65 K/uL (4.50-11.00)
[2024-12-02] MEDS: ACETAMINOPHEN 500 MG TABLET 1000 MG PO (19:30)
[2024-12-02] MEDS: PIPERACILLIN/TAZOBACTAM 3.375 GM in 0.9 % SODIUM CHLORIDE Mini-bag 100 ML IVPB (19:30)
[2024-12-02 19:33] LABS: Slide Review Reflex No
[2024-12-02 19:34] LABS: Albumin* 4.3 g/dL (3.3-5.0); Chloride* 100 mmol/L (96-114)
[2024-12-02 19:35] LABS: Potassium* 3.8 mmol/L (3.6-5.1); Sodium* 136 mmol/L (135-149)
[2024-12-02 19:37] LABS: Blood Urea Nitrogen* 16 mg/dL (7-30); Creatinine* 0.9 mg/dL (0.5-1.5); Est. Creatinine Clearance* 37.12; Estimated Glomerular Filt Rate 65 ml/min
[2024-12-02 19:38] LABS: Alanine Aminotransferase* 17 U/L (4-35); Alkaline Phosphatase* 74 U/L (40-150); Anion Gap 9 mEq/L (7-15); Aspartate Amino Transferase* 34 U/L (12-35); Bilirubin Direct* 0.3 mg/dL (0.0-0.5); Bilirubin Total* 0.6 mg/dL (0.1-1.5); Carbon Dioxide* 27 mmol/L (20-32); Glucose* 102 mg/dL (60-115); Total Protein* 7.8 g/dL (6.0-8.3)
[2024-12-02 19:40] LABS: C Reactive Protein* 3.7 mg/dL (0.5-1.0)
[2024-12-02 20:03] LABS: PCR FLU A Negative PCR FLU A (Negative); PCR FLU B Negative PCR FLU B (Negative); PCR RSV Negative PCR RSV (Negative); SARS PCR* Negative SARS-CoV-2 (Negative)
--- OUTSIDE RECORDS SUMMARY | 2024-12-02 20:19 | XMS_ITS | Clinical Summary ---
Author Organization [employer] Address [address] [place] [id number] Care Team Providers Care Astronomy Instructor Name Role Phone Toma Grayson Primary Care Provider [phone] Allergies No known active allergies Medications cyanocobalamin [...] (08/30/2022): Vascular consult 05/2018 - anticoagulation suggested retirement Vitamin D deficiency 08/19/2017 Normocytic anemia 08/19/2017 Osteopenia of multiple sites 08/18/2017 Personal history of malignant melanoma of skin 1 10/18/2016 Overview (08/18/2017): 2001 Colitis 12/24/2015 Overview (12/24/2015): Colonoscopy 12/2012 in [place] - started on ASACOL then mesalamine Multiple sclerosis 12/15/2015 Pulmonary nodule 06/30/2015 Overview (08/25/2020): CT 09/01 -- follow up stable CT 2015 - stable - had biopsy finding necrotizing granuloma Hypertension 06/27/2014 Intestinal infection due to Clostridium difficil e 04/24/2012 Overview (12/07/2021): Recurrent infections: 02/05/21 10/31/2020 ([place]) after treatment for UTI February and April 2012 Colonic ulcer 09/09/2011 Overview (09/09/2011): Colonoscopy 08/2011 multiple small erosions from Aleve repeat in 5 years Helicobacter pylori (H. pylori) 07/02/2011 Overview (07/02/2011): EGD 06/2011 hpylori Mixed hyperlipidemia 02/11/2011 Overview (02/11/2011): Noted on Office visit of GERD (gastroesophageal reflux disease) 0 Urinary urgency 06/22/2010 Personal history of rectal cancer 05/22/2008 Overview (06/30/2015): Colonoscopy in 2013 ([place]) - repeat in 5 years recommended Resolved [...] Type Department Care Team Description 11/19/2024 Refill [facility] [address] [place] [address] Toma Grayson PA Refill Request (Nitrofurantoin Macrocrystals/monohy drate) 11/16/2024 Refill [facility] [address] [place] [address] Toma Grayson PA Refill Request (Hydrochlorothiazide , Simvastatin, Gabapentin, Metoprolol Succinate) 10/05/2024 8:10 AM BROWNING PROCESSOR Office Visit [facility] [address] [place] [address] Toma Grayson PA Medicare ANNUAL (subsequent) Visit 10/05/2024 Travel 09/12/2024 Refill [facility] [address] [place] [address] Toma Grayson PA Refill Request (Simvastatin, Gabapentin, Hydrochlorothiazide, Metoprolol Succinate) 09/07/2024 1:20 PM BROWNING PROCESSOR Office Visit [facility] [address] [place] [address] Christine Mittal PA Urinary Problem (Was treated for UTI around Thansgiving, was feeling better and now feeling like infection is back. Dysuria, not feeling like bladder is emptying.); Sinus Problem (congestion) 09/07/2024 Refill [facility] [address] [place] [address] Toma Grayson PA Refill Request (Metoprolol Succinate, Gabapentin, Xarelto, Hydrochlorothiazide, Simvastatin) 09/07/2024 Travel 09/03/2024 Nurse Triage [facility] [address] [place] [address] Toma Grayson PA Urinary Problem from Last [...] on file Legal Sex Female 6:17 AM BROWNING PROCESSOR Gender Identity Not on file Sexual Orientation [...] Comments Blood Pressure 175/89 10/05/2024 8:24 AM BROWNING PROCESSOR Pulse 59 10/05/2024 8:24 AM BROWNING PROCESSOR Temperature 36.7 C (98.1 F) 01/04/2022 9:50 AM CDT Respiratory Rate 16 01/18/2022 12:58 PM CDT Oxygen Saturation 100% 10/05/2024 8:24 AM BROWNING PROCESSOR Inhaled Oxygen Concentration - - Weight 58.1 kg (128 lb) 10/05/2024 8:24 AM BROWNING PROCESSOR Height 156.1 cm (5' 1.46) 10/05/2024 8:24 AM CS T Body Mass Index 23.83 10/05/2024 8:24 AM BROWNING PROCESSOR Plan of Treatment Health Maintenance Due Date [...] 07/30/2024, 05/30/2007 Medical Devices Implanted Type Area Zoology Professor Device Identifier Shelf Expiration Date Model / Serial / Lot Stent Uret [id number] Contour - [id number] Implanted:Qty: 1 on 12/10/2021 by Olu Patel MD at [facility] Right: [employer] [facility] [place] [id number] / / [id number] Procedures Procedure Name Priority Date/Time Associated Diagnosis Comments COMP METABOLIC PANEL Routine 10/05/2024 8:55 AM BROWNING PROCESSOR Hypertension, unspecified type LIPID PANEL W REFLEX MEASURED LDL Routine 10/05/2024 8:55 AM BROWNING PROCESSOR Mixed hyperlipidemia HEMOGLOBIN A1C Routine 10/05/2024 8:55 AM BROWNING PROCESSOR Prediabetes CBC WITH AUTO DIFFERENTIAL Routine 10/05/2024 8:55 AM BROWNING PROCESSOR High risk medication use [facility]IC [facility] P[facility]IP ([facility]) Routine 09/07/2024 1:42 PM BROWNING PROCESSOR Dysuria URINE CULTURE Routine 09/07/2024 1:35 PM BROWNING PROCESSOR Dysuria URINALYSIS MICROSCOPIC Routine 09/07/2024 1:35 PM BROWNING PROCESSOR Dysuria XR DXA BONE DENSITY 2 SITES AXIAL Routine 08/21/2018 11:20 AM BROWNING PROCESSOR Osteopenia of multiple sites from Last 3 Months or Most Recently Relevant to Health Maintenance Results * (ABNORMAL) HEMOGLOBIN A1C (10/05/2024 8:55 AM BROWNING PROCESSOR) HEMOGLOBIN A1C 6.0(H) <5.7 % of total [...] BLOOD SPECIMEN / Unknown 10/05/2024 8:55 AM BROWNING PROCESSOR 10/05/2024 8:55 AM BROWNING PROCESSOR Toma MEREDITH CHEMISTRY Final Resu lt [facility] [address] [place] [address], [facility] [address] [place] [address] * (ABNORMAL) LIPID PANEL W REFLEX MEASURED LDL (10/05/2024 8:55 AM BROWNING PROCESSOR) CHOLESTEROL, TOTAL 161 <200 mg/dL [facility] [...] LDL-C. Micheal ROMERO et al. ROSA. 2013;310(19): 0758-4131 (http://education.[employer]/faq/NVJ989) CHOL/HDLC RATIO 2.5 <5.0 (calc) [facility] NON HDL CHOLESTEROL 97 <130 mg/dL (calc) [facility] Comment: For patients with diabetes plus 1 major ASCVD risk factor, treating to a non-HDL-C goal of <100 mg/dL (LDL-C of <70 mg/dL) is considered a therapeutic option. Blood BLOOD SPECIMEN / Unknown 10/05/2024 8:55 AM BROWNING PROCESSOR 10/05/2024 8:55 AM BROWNING PROCESSOR Toma MEREDITH CHEMISTRY Final Resu lt [employer] [facility] [address] [place] [address], [facility] [address] [place] [address] * CBC AND DIFFERENTIAL (10/05/2024 8:55 AM BROWNING PROCESSOR) WHITE BLOOD CELL COUNT 7.7 3.8 - 10.8 Thousand/u L [facility] RED BLOOD CELL COUNT 3.95 3.80 - 5.10 Million/uL [facility] HEMOGLOBIN 12.0 11.7 - 15.5 g/dL [facility] HEMATOCRIT 37.2 35.0 - 45.0 % [facility] MCV 94.2 80.0 - 100.0 fL [facility] MCH 30.4 27.0 - 33.0 pg [facility] MCHC 32.3 32.0 - 36.0 [...] BLOOD SPECIMEN / Unknown 10/05/2024 8:55 AM BROWNING PROCESSOR 10/05/2024 8:55 AM BROWNING PROCESSOR Toma MEREDITH HEMATOLOGY Final Resu lt [employer] [facility] [address] [place] [address], [facility] [address] [place] [address] * COMP METABOLIC PANEL (10/05/2024 8:55 AM BROWNING PROCESSOR) GLUCOSE 82 65 - 99 mg/dL [facility] [...] BLOOD SPECIMEN / Unknown 10/05/2024 8:55 AM BROWNING PROCESSOR 10/05/2024 8:55 AM BROWNING PROCESSOR Toma MEREDITH CHEMISTRY Final Resu lt [employer] [facility] [address] [place] [address], [facility] [address] [place] [address] * (ABNORMAL) POCT Urinalysis Dipstick Only (09/07/2024 1:42 PM BROWNING PROCESSOR) [facility] PH 7.0 5.0 - 8.0 [facility] SPECIFIC GRAVITY 1.010 1.001 - 1.035 [facility] GLUCOSE NEGATIVE NEGATIVE [facility] BILIRUBIN NEGATIVE NEGATIVE [facility] KETONES NEGATIVE NEGATIVE [facility] OCCULT BLOOD 2+(A) NEGATIVE [facility] PROTEIN NEGATIVE NEGATIVE [facility] NITRITE POSITIVE(A) NEGATIVE [facility] LEUKOCYTE ESTERASE 2+(A) NEGATIVE [facility] Urine URINE SPECIMEN / Unknown 09/07/2024 1:42 PM BROWNING PROCESSOR 09/07/2024 1:43 PM BROWNING PROCESSOR Christine MEREDITH URINE Final R esult [facility] [address] [place] [address], [facility] [address] [place] [address] * (ABNORMAL) URINALYSIS MICROSCOPIC (09/07/2024 1:35 PM BROWNING PROCESSOR) RBC 3-5(A) 0-2, None Seen /HPF 09/07/2024 11:20 PM BROWNING PROCESSOR [facility] WBC >100(A) 0-2, 3-5, None Seen /HPF 09/07/2024 11:20 PM BROWNING PROCESSOR [facility] BACTERIA Moderate(A ) None Seen, Rare, Few Bacteria/ HPF 09/07/2024 11:20 PM BROWNING PROCESSOR [facility] EPITHELIAL CELLS None Seen None Seen, Few Epi/HPF 09/07/2024 11:20 PM BROWNING PROCESSOR [facility] HYALINE CASTS 0-2 0-2, 3-5 /LPF 09/07/2024 11:20 PM BROWNING PROCESSOR [facility] Urine URINE SPECIMEN / Unknown Non-Blood / Unknown 09/07/2024 1:35 PM BROWNING PROCESSOR 09/07/2024 1:41 PM BROWNING PROCESSOR Christine MEREDITH URINE Final R esult [facility] [address] [place] [address], * (ABNORMAL) URINE CULTURE (09/07/2024 1:35 PM BROWNING PROCESSOR) CULTURE RESULT(A) 09/10/2024 7:45 AM BROWNING PROCESSOR [facility] CULTURE >100,000 CFU/mL Escherichia coli 09/10/2024 7:45 AM BROWNING PROCESSOR [facility] Urine URINE SPECIMEN / Unknown Non-Blood / Unknown 09/07/2024 1:35 PM BROWNING PROCESSOR 09/07/2024 1:41 PM BROWNING PROCESSOR Narrative Organism Antibiotic Method Susceptibility Escherichia coli [...] Christine MEREDITH MICROBIOLOGY Final R esult [facility] [address] [place] [address], * (ABNORMAL) XR DXA BONE DENSITY 2 SITES AXIAL (08/21/2018 11:20 AM BROWNING PROCESSOR) Anatomical Region Laterality Modality Spine, HIPS, HIPL, HIPR Other Narrative 08/23/2018 3:46 PM BROWNING PROCESSOR Please see scanned document for results of this study. Maye Slaughter MD DEXA Final Result from Last 3 Months or Most Recently Relevant to Health Maintenance Additional Health Concerns Infection Onset Date Last Indicated CLOSTRIDIUM DIFFICILE Comment:Provider note indicates +C.diff during 11/29/2021-12/02 admission to [facility]. Unable to verify in chart. Place in Enteric Precautions while loose stools continue. 01/19/2021 01/19/2021 Insurance [facility] MR Advance Directives * DNR (Latest Code Status on File) Date Activated Date Inactivated Comments 12/09/2021 5:08 PM 12/11/2021 6:02 PM Reviewed nabila or ACP Question Answer Comments Code Status Discussion: Reviewed Preferences Care Teams Astronomy Instructor Relationship Specialty Start Date End Date Toma Grayson PA [address] [place] [address] PCP - General Physician Ratchet Setter 04/14/23
[2024-12-02] MEDS: diphenhydrAMINE 25 MG CAPSULE PO (22:10)
[2024-12-02] MEDS: ACETAMINOPHEN 325 MG TABLET PO (22:10)
[2024-12-02] MEDS: GABAPENTIN 300 MG CAPSULE PO (22:10)
--- NOTE | 2024-12-02 22:16 | P.IMHP_ITS ---
Hospitalist- H&P: [facility] History of Present Illness Date Seen: 12/02/24 Chief complaint: Shaking, feels faint, Fever, weakness Narrative: Jameel Velasquez is a 79 year old woman was for the most part in her usual state of health until this afternoon. She attended her great granddaughter's birthday republican and then return home. Fell asleep for a nap. When she awoke she had rigors, felt cold and could not warm up. (Up until that moment she had no idea she had fevers. Did not take her temperature at home but on arrival to the emergency department her temperature was already elevated with a T-max of 103? F.) She eventually called her daughter to help her when she realized that her legs were so weak she could hardly stand. She has had similar symptoms in the past when she has had urinary tract infections. In hindsight she realizes that she has had 1 week history of desire to urinate but inability to urinate sometimes when she attempts to urinate. She has had a sense of increasing back discomfort also as she has had in the past when she has had urinary tract infections. On the other hand she has chronic low back pain for which she intermittently receives steroid injections from a pain specialist. Denies dysuria, urgency, frequency, or hematuria. Does take nitrofurantoin 100 mg daily prophylactically due to history of recurrent UTIs. Denies diarrhea or constipation. Denies nausea or vomiting. Denies chest heaviness, pressure, tightness, or pain. Denies dyspnea or cough. Denies syncope or near-syncope. I reviewed her last urine culture that we have available dated 05/01/2024. Patient grew out greater than 100 colony-forming units per mL of Klebsiella pneumoniae. Organism was resistant to ampicillin and nitrofurantoin. Organism was sensitive to all other antibiotics. Review of Systems Status of ROS: Reports: 6 or more systems reviewed and unremarkable except as noted in History and below Narrative: Still actively drinks 1 or 2 beers daily. Denies alcohol withdrawal symptoms. Had only a half a drink of beer today. Does not use tobacco products. Daughters are very supportive. One of her daughters lives about 8 houses away from her and is very involved in her day-to-day life. [facility] Medical History Pre-diabetes ?R73.03 - Prediabetes (ICD-10) Chronic anticoagulation ?Z79.01 - senior care (current) use of anticoagulants (ICD-10) History of DVT (deep vein thrombosis) ?Z86.718 - Personal history of other venous thrombosis and embolism (ICD-10) Recurrent UTI ?N39.0 - Urinary tract infection, site not specified (ICD-10) CKD stage 3b, GFR 30-44 ml/min ?N18.32 - Chronic kidney disease, stage 3b (ICD-10) Multiple sclerosis ?G35 - Multiple sclerosis (ICD-10) Normocytic anemia ?D64.9 - Anemia, unspecified (ICD-10) Chronic colitis ?K52.9 - Noninfective gastroenteritis and colitis, unspecified (ICD-10) History of Clostridioides difficile colitis ?Z86.19 - Personal history of other infectious and parasitic diseases (ICD- 10) History of rectal cancer ?Z85.048 - Personal history of other malignant neoplasm of rectum, rectosigmoid junction, and anus (ICD-10) GERD (gastroesophageal reflux disease) ?K21.9 - Gastro-esophageal reflux disease without esophagitis (ICD-10) Hyperlipidemia ?E78.5 - Hyperlipidemia, unspecified (ICD-10) Hypertension ?I10 - Essential (primary) hypertension (ICD-10) Pneumonia ?J18.9 - Pneumonia, unspecified organism (ICD-10) URI (upper respiratory infection) ?J06.9 - Acute upper respiratory infection, unspecified (ICD-10) Sore throat ?J02.9 - Acute pharyngitis, unspecified (ICD-10) Cough ?R05.9 - Cough, unspecified (ICD-10) Social History What is your current living situation?: I presently have a place to live Problems where you live: no known problems Problems where you live details: n/a In the past 12 months, utilities in danger of being shut off: no In past 12 months, lack of transportation kept you from medical appts, meetings, work, or getting things needed for daily living: no In the past 12 mos, have been you worried that your food would run out before you had money to buy more?: never true In the past 12 mos, the food you bought just didn't last and you didn't have money to buy more?: never true Highest level of school completed/degree received: high school graduate Smoking Status: Former smoker Do you use any of these nicotine containing products: None Second hand tobacco smoke exposure: No How often do you have a drink containing alcohol: 2-4 times a month Alcohol type: beer How many standard drinks containing alcohol do you have on a typical day: 1 or 2 How often do you have six or more drinks on one occasion: Never AUDIT-C Alcohol total score: 2 Non-prescribed substance use: denies use Caffeine: No How often does anyone, including family, friends and others, physically hurt you : never How often does anyone, including family, friends and others, insult or talk down to you: never How often does anyone, including family, friends and others, threaten you with harm: never How often does anyone, including family, friends and others, scream or curse at you: never service: No Meds Home Medications and Allergies Home Medications ?Medication ?Instructions ?Recorded ?Confirmed ?Type gabapentin 300 mg capsule 300 mg PO DAILY 08/16/22 12/02/24 History hydrochlorothiazide 12.5 mg tablet 12.5 mg PO DAILY 08/16/22 12/02/24 History metoprolol succinate 50 mg 50 mg PO DAILY 08/16/22 12/02/24 History tablet,extended release 24 hr nitrofurantoin 100 mg PO DAILY 08/16/22 12/02/24 History monohydrate/macrocrystals 100 mg capsule simvastatin 10 mg tablet 10 mg PO HS 08/16/22 12/02/24 History rivaroxaban 10 mg tablet (Xarelto) 10 mg PO DAILY 05/26/23 12/02/24 History Home Medication Comments: Tylenol p.m. q.h.s. Allergies Allergy/AdvReac Type Severity Reaction Status Date / Time No Known Drug Allergies Allergy Verified 12/02/24 18:34 Exam Narrative: Exam Narrative: I assess the patient emergency department with her 2 daughters next to her. Patient appears ill. No longer having rigors by the time I see her. Friendly and cooperative. Articulate. Alert and oriented x3. External auditory canals are clear and tympanic membranes are normal. Midline nasal septum. Moist buccal mucosa. Dentition fair repair. No icterus or conjunctival injection. Conjugate gaze. Midline trachea. Normal thyroid. No JVD or hepatojugular reflux. No head neck lymphadenopathy. Lungs are clear to auscultation without wheezing, rhonchi, or rales. Chest wall excursions are full. No CVA tenderness. Heart tones with regular rhythm, normal S1-S2, without murmur, gallop, or rub. PMI not laterally displaced. Abdomen with active bowel sounds, soft, nontender. No lower extremity edema. No focal motor neurologic deficits. Skin is warm, dry, intact. No jaundice, cyanosis, petechiae, or rashes. Const: Vital Signs, click to edit/add: Vital Signs - 24 hr 12/02/24 18:28 12/02/24 19:54 12/02/24 19:56 Temperature 101.8 F H 103.1 F H Pulse Rate [Pulse Oximeter] Pulse Rate [Right Pulse Oximeter] 90 98 Respiratory Rate 18 18 Blood Pressure [Ri ght Arm] Blood Pressure [Ri ght Upper Arm] 127/84 152/78 H Pulse Oximetry 94 91 Oxygen Delivery Me thod Room Air 12/02/24 20:01 12/02/24 20:56 12/02/24 21:33 Temperature 100.3 F H 99.1 F Pulse Rate [Pulse Oximeter] 91 Pulse Rate [Right Pulse Oximeter] Respiratory Rate 16 Blood Pressure [Ri ght Arm] 124/60 Blood Pressure [Ri ght Upper Arm] Pulse Oximetry 98 93 Oxygen Delivery Me thod Room Air Hospitalist - H&P: Result Labs Labs: Short CBC 12/02/24 Range/Units 19:05 WBC 11.65 H (4.50-11.00) K/uL Hgb 11.4 L (12.0-16.0) gm/dL Hct 36.5 (33.0-51.0) % Plt Count 212 (140-440) K/uL BMP 12/02/24 19:05 Sodium 136 Potassium 3.8 Chloride 100 Carbon Dioxide 27 BUN 16 Creatinine 0.9 Glucose 102 Calcium 9.0 Liver Function 12/02/24 Range/Units 19:05 Total Bilirubin 0.6 (0.1-1.5) mg/dL Direct Bilirubin 0.3 (0.0-0.5) mg/dL AST 34 (12-35) U/L ALT 17 (4-35) U/L Alkaline Phosphatase 74 (40-150) U/L Albumin 4.3 (3.3-5.0) g/dL Urine 12/02/24 Range/Units 18:40 Urine Color Yellow (Yellow) Urine Appearance Clear (Clear) Urine pH 6.5 (5.0-8.5) Ur Specific [place] 1.020 (1.000-1.030) Urine Protein 2+ A (Negative) Urine Glucose (UA) Negative (Negative) Imaging Chest x-ray: Attestation: I have reviewed the pertinent imaging results. Radiologist's impression: No acute cardiopulmonary abnormalities noted. Assessment and Plan Assessment and plan (1) Acute UTI: Problem comment: - complex UTI with rigors concerning for possible bacteremia - blood cultures and urine cultures obtained - piperacillin and tazobactam renally dosed - IV fluids - monitor labs Status: Acute (2) Rigors: Problem comment: - concerning for possible bacteremia in association with complex urinary tract infection Status: Acute (3) Chronic anticoagulation: Status: Acute (4) History of DVT (deep vein thrombosis): Problem comment: On chronic anticoagulation, Eliquis 10 mg daily. History of IVC filter Given significant history, continue on current dosing while on Paxlovid knowing increased risk for clots with covid. Discussed with pharmacy Status: Acute (5) Multiple sclerosis: Problem comment: Diagnosed approximately 40 years ago Followed by Neurology, last visit 04/[address] Bellamy Status: Acute (6) CKD stage 3b, GFR 30-44 ml/min: Problem comment: Creatinine 1.2 on admission, previous 0.95, improved to 0.8 on day of discharge. Estimated creatinine clearance 31.45 on admission. Paxlovid renally dosed. Status: Acute Plan 1. Reviewed my impression and recommendations with patient and daughters 2. Answered their questions to their satisfaction 3. They are agreeable with above stated plans and recommendations Total Time Spent Total Time Spent: 65 minutes
[2024-12-03] VITALS (9 sets, daily range): BP systolic 82–134; BP diastolic 43–72; PULSE 55–68; RESP 16–18; TEMP 36.3–37.1; O2SAT 91–97
[2024-12-03] MEDS: ACETAMINOPHEN 325 MG TABLET 650 MG PO ×4 (01:27→20:49)
[2024-12-03] MEDS: PIPERACILLIN/TAZOBACTAM 2.25 GM in 0.9 % SODIUM CHLORIDE Mini-bag 100 ML IVPB ×2 (01:28→08:06)
[2024-12-03] MEDS: 0.9 % SODIUM CHLORIDE 1000 ml 1,000 ML 250 ML IV (02:44)
--- NOTE | 2024-12-03 06:21 | PC.NURSE ---
Pt arrived to the floor at 2100 with daughters at bedside. Pt A&O pleasant and cooperative. Afebrile and other VSS on admission and pt denying pain. Pt denies n/v, CP and SOB. Ambulated to the bathroom w/ A2 walker and GB. Pt a bit unsteady on her feet. She reported some lightheadedness when sitting up but reported it subsiding before ambulation. Pt hypotensive overnight. Asymptomatic when lying. MD contacted. See orders. Afebrile and other VSS at that time. Bed alarm in place but uses call light appropriately.
[2024-12-03 06:30] LABS: HCO3 VBG 26 mmol/L (21-28); Lactate* 0.6 mmol/L (0.5-1.9); PCO2 VBG 45 mmHG (40-50); PO2 VBG 43.2 mmHG (25-47); pH VBG 7.374 (7.32-7.43)
[2024-12-03 06:36] LABS: Hematocrit 30.2 % (33.0-51.0); Hemoglobin* 9.6 gm/dL (12.0-16.0); Mean Corpuscular HGB Conc 32 gm/dL (32-36); Mean Corpuscular Hemoglobin 30 pg (26-34); Mean Corpuscular Volume 95 fL (80-100); Platelet Count* 182 K/uL (140-440); Red Blood Count 3.19 m/uL (4.00-5.20); White Blood Count* 14.42 K/uL (4.50-11.00)
[2024-12-03 06:43] LABS: Slide Review Reflex No
[2024-12-03 07:01] LABS: Chloride* 103 mmol/L (96-114); Potassium* 3.1 mmol/L (3.6-5.1); Sodium* 135 mmol/L (135-149)
[2024-12-03 07:04] LABS: Blood Urea Nitrogen* 16 mg/dL (7-30); Creatinine* 1.1 mg/dL (0.5-1.5); Est. Creatinine Clearance* 33.74; Estimated Glomerular Filt Rate 51 ml/min
[2024-12-03 07:05] LABS: Anion Gap 6 mEq/L (7-15); Calcium* 7.8 mg/dL (8.4-10.6); Carbon Dioxide* 26 mmol/L (20-32); Glucose* 101 mg/dL (60-115); Magnesium* 1.4 mg/dL (1.5-2.6); Phosphorus* 4.2 mg/dL (2.5-4.5)
[2024-12-03 07:07] LABS: C Reactive Protein* 7.6 mg/dL (0.5-1.0)
[2024-12-03] MEDS: SODIUM CHLORIDE 0.9 % (FLUSH) 10 ML SYRINGE 5 ML IVF ×2 (08:44→20:50)
[2024-12-03] MEDS: RIVAROXABAN 10 MG TABLET PO (08:44)
[2024-12-03] MEDS: hydroCHLOROthiazide 12.5 MG CAPSULE PO (08:44)
[2024-12-03] MEDS: METOPROLOL SUCCINATE (XL) 50 MG TAB PO (08:44)
--- NOTE | 2024-12-03 09:56 | P.IMPN_ITS ---
Progress Note: A&P Assessment and plan (1) Acute UTI: Problem details: - complex UTI with bacteremia - E coli isolated in both bottles - based on history and clinical presentation will go from Zosyn to Cefazolin 2 grams [id number] - repeat blood cultures this morning - IV fluids, replace electrolytes magnesium and potassium - monitor labs Status: Acute (2) Bacteremia, escherichia coli: Problem details: -Ecoli in both aerobic and anaerobic bottle -Zosyn --> Cefazolin -repeated culture this morning to assure clearance Status: Acute (3) Recurrent UTI (urinary tract infection): Problem details: -two previous ecoli bacteremias -recurrent ecoli and klebsiella bladder infections -will recommend methenamine hippurate and estrogen at discharge for prevention Status: Acute (4) CKD stage 3b, GFR 30-44 ml/min: Problem details: baseline creat 0.9, crcl 37 stable Status: Acute (5) Chronic anticoagulation: Problem details: Xarelto 10mg daily Status: Acute (6) History of DVT (deep vein thrombosis): Problem details: On chronic anticoagulation, Eliquis 10 mg daily. History of IVC filter Status: Acute (7) Multiple sclerosis: Problem details: Diagnosed approximately 40 years ago Followed by Neurology (Dr. Bellamy) Status: Acute (8) Hypertension: Problem details: home meds on hold given sepsis HcTZ and Toprol xl Status: Acute Subjective Date Seen: 12/03/24 Interval history: Daily Progress Note - Hospital Medicine #: 2 CC: bacteremia; UTI 24 HOUR UPDATE: Pt is feeling much improved this morning. She said, still a little weak but night/day from yesterday - she had one episode of low blood pressure overnight and her fever has defervesced. She was chatting in the recliner with a friend. She breakfast. Notable Labs, Micro, Rads, Interventions: Afebrile this morning. T-max 103.1 8:00 p.m. last night Blood pressure 110/60, low was overnight 82/43 Pulse 60s Respiratory rate 18 Pulse ox 94% on room air 54.6 kilos CBC reflects an up trending white blood cell count 11 0.6-14.4. CRP is up trending 3.7-7.6 Hemoglobin is down from 11 0.4-9.6, no active bleeding noted Platelets are normal at 182. Venous blood gas is normal Potassium has dropped overnight 3.8 to 3.1 Magnesium 1.4 this morning Urine yesterday showed 2+ protein, 2+ blood, positive nitrate and 1+ leukocyte esterase. Greater 100 white blood cells per high-power field. Negative respiratory swab Chest x-ray was unremarkable on admission Blood culture from yesterday is growing E coli - both bottles, aerobic and anaerobic. Objective: Alert, pleasant. No acute distress. Vitals: see above Lungs: Clear. Cardiac: S1S2. Abdomen: Soft. Disposition/Potential discharge - We will continue IV antibiotics until full susceptibility is confirmed and we can transition to orals. Close monitoring of her blood pressure, fever curve, inflammatory markers and white blood cell count. Today I spent 50minutes seeing the patient, reviewing Expanse and EPIC notes/diagnostics, discussing the care plan with our care time that includes social work, PT/OT, pharmacy, RT, shelter and documenting my impressions and plan in the medical record. Exam Const: Vital Signs, click to edit/add: Vital Signs - 24 hr 12/02/24 18:28 12/02/24 19:54 12/02/24 19:56 Temperature 101.8 F H 103.1 F H Pulse Rate [Pulse Oximeter] Pulse Rate [Right Pulse Oximeter] 90 98 Respiratory Rate 18 18 Blood Pressure [Ri ght Arm] Blood Pressure [Ri ght Upper Arm] 127/84 152/78 H Pulse Oximetry 94 91 Oxygen Delivery Me thod Room Air 12/02/24 20:01 12/02/24 20:56 12/02/24 21:33 Temperature 100.3 F H 99.1 F Pulse Rate [Pulse Oximeter] 91 Pulse Rate [Right Pulse Oximeter] Respiratory Rate 16 Blood Pressure [Ri ght Arm] 124/60 Blood Pressure [Ri ght Upper Arm] Pulse Oximetry 98 93 Oxygen Delivery Me thod Room Air 12/02/24 22:50 12/03/24 02:20 12/03/24 06:06 Temperature 99.0 F 98.4 F 98.1 F Pulse Rate [Pulse Oximeter] 88 62 59 L Pulse Rate [Right Pulse Oximeter] Respiratory Rate 16 18 Blood Pressure [Ri ght Arm] 103/67 82/43 L 110/56 L Blood Pressure [Ri ght Upper Arm] Pulse Oximetry 91 91 Oxygen Delivery Me thod Room Air Room Air 12/03/24 08:08 03/17/25 08:15 Temperature 97.4 F L Pulse Rate [Pulse Oximeter] 60 60 Pulse Rate [Right Pulse Oximeter] Respiratory Rate 18 18 Blood Pressure [Ri ght Arm] 110/60 Blood Pressure [Ri ght Upper Arm] Pulse Oximetry 94 Oxygen Delivery Me thod Room Air Labs Labs: Laboratory Results - last 24 hr 12/02/24 12/02/24 12/03/24 18:40 19:05 06:04 WBC 11.65 H 14.42 H RBC 3.85 L 3.19 L Hgb 11.4 L 9.6 L Hct 36.5 30.2 L MCV 95 95 MCH 30 30 MCHC 31 L 32 RDW Coeff of Clotilde 13.7 Plt Count 212 182 Neut % (Auto) 84.2 H Lymph % (Auto) 11.2 L Humphreys % (Auto) 3.6 Eos % (Auto) 0.5 Baso % (Auto) 0.3 Neut # (Auto) 9.80 H Lymph # (Auto) 1.30 Humphreys # (Auto) 0.40 Eos # (Auto) 0.10 Baso # (Auto) 0.00 Abs Immat Gran (auto) 0.00 Imm/Tot Granulo (auto) 0.2 VBG pH 7.374 VBG pCO2 45 VBG pO2 43.2 VBG HCO3 26 Sodium 136 135 Potassium 3.8 3.1 L Chloride 100 103 Carbon Dioxide 27 26 Anion Gap 9 6 L BUN 16 16 Creatinine 0.9 1.1 Estimated Creat Clear 37.12 33.74 Estimated GFR 65 51 Glucose 102 101 Lactate 1.4 0.6 Calcium 9.0 7.8 L Phosphorus 4.2 Magnesium 1.4 L Total Bilirubin 0.6 Direct Bilirubin 0.3 AST 34 ALT 17 Alkaline Phosphatase 74 C-Reactive Protein 3.7 H 7.6 H Total Protein 7.8 Albumin 4.3 Urine Color Yellow Urine Appearance Clear Urine pH 6.5 Ur Specific [place] 1.020 Urine Protein 2+ A Urine Glucose (UA) Negative Urine Ketones Negative Urine Blood 2+ A Urine Nitrite Positive A Urine Bilirubin Negative Urine Urobilinogen 0.2 Ur Leukocyte Esterase 1+ A Urine RBC 2-5 A Urine WBC >100 A Urine WBC Clumps Moderate A Ur Squamous Epith Cells Moderate A Urine Bacteria Many A SARS-CoV-2 (PCR) Negative SARS-CoV-2 Influenza Type A (PCR) Negative PCR FLU A Influenza Type B (PCR) Negative PCR FLU B RSV (PCR) Negative PCR RSV
[2024-12-03] MEDS: POTASSIUM BICARB 25 MEQ EFFERVESCENT TAB PO ×2 (10:28→12:18)
[2024-12-03] MEDS: MAGNESIUM IV 2 GM/50 ML PIGGYBACK IVPB (10:29)
--- NOTE | 2024-12-03 13:17 | PC.NURSE ---
End of shift summary, transferred care to Leonarda Torres RN: Pt has been A&O, afebrile and VSS today. She had no c/o pain this morning. She is a SBA with cane for transfers & ambulation. Pt reports feeling night & day difference from the day before, states she feels much more steady on her feet. No c/o dizziness or nausea. K+ this morning 3.1; replaced with 50 mEq PO. Mag 1.4 this morning; replaced with 2g IV dose. PIV in right AC SL and C/D/I. Blood cultures from 12/02 came back positive for E. Coli both bottles. Repeat BC drawn this morning. IV Zosyn changed to IV Ancef for UTI and bacteremia coverage. Pt is continent of B&B although she did not have a BM today, she reports chronic diarrhea d/t colon CA & resection. Pt is pleasant, call light appropriate and cooperative with cares.
[2024-12-03] MEDS: CEFAZOLIN 2 GM in 0.9 % SODIUM CHLORIDE Mini-bag 100 ML IVPB ×2 (14:14→22:03)
[2024-12-03 19:04] LABS: Chloride* 103 mmol/L (96-114); Sodium* 135 mmol/L (135-149)
[2024-12-03 19:05] LABS: Potassium* 3.1 mmol/L (3.6-5.1)
[2024-12-03 19:08] LABS: Anion Gap 7 mEq/L (7-15); Blood Urea Nitrogen* 18 mg/dL (7-30); Calcium* 8.3 mg/dL (8.4-10.6); Carbon Dioxide* 25 mmol/L (20-32); Creatinine* 0.9 mg/dL (0.5-1.5); Est. Creatinine Clearance* 37.12; Estimated Glomerular Filt Rate 65 ml/min; Glucose* 115 mg/dL (60-115); Magnesium* 2.2 mg/dL (1.5-2.6)
--- NOTE | 2024-12-03 19:38 | PC.NURSE ---
End of shift [id number]: Pt AxOx4, pleasant, and cooperative with cares. Pt tolerating reg diet/fluids well. Continent of the bladder. SBA with cane, furniture walker. Pt denies pain and nausea. Pt had visitors this evening. Pt appears resting in chair with call light in reach.
[2024-12-03] MEDS: GABAPENTIN 300 MG CAPSULE PO (20:50)
[2024-12-03] MEDS: SIMVASTATIN 10 MG TABLET PO (20:50)
[2024-12-04] MEDS: ACETAMINOPHEN 325 MG TABLET 650 MG PO (02:12)
[2024-12-04 03:00] VITALS: BP 144/72; PULSE 65; RESP 18; TEMP 36.4; O2SAT 97
[2024-12-04] MEDS: CEFAZOLIN 2 GM in 0.9 % SODIUM CHLORIDE Mini-bag 100 ML IVPB ×2 (05:45→14:28)
--- NOTE | 2024-12-04 06:32 | PC.NURSE ---
End of shift report [id number]: Pleasant and cooperative with cares. Pain to low back and bilateral feet well managed with current regimen. Patient afebrile throughout the shift, denies any chills. Urine is clear, straw in color and normal odor. denies any flank pain or dysuria. Ambulates with SBA with cane. Patient did have one soft/loose bm this shift, she does state that she does often get loose stools from antibiotics. Bowel sounds active x 4 quadrants. Denies any shortness of breath or chest pain.
[2024-12-04 07:07] LABS: Lactate* 0.6 mmol/L (0.5-1.9)
[2024-12-04 07:11] LABS: Hematocrit 31.4 % (33.0-51.0); Hemoglobin* 9.9 gm/dL (12.0-16.0); Mean Corpuscular HGB Conc 32 gm/dL (32-36); Mean Corpuscular Hemoglobin 30 pg (26-34); Mean Corpuscular Volume 95 fL (80-100); Platelet Count* 181 K/uL (140-440); Red Blood Count 3.29 m/uL (4.00-5.20); White Blood Count* 7.26 K/uL (4.50-11.00)
[2024-12-04 07:17] LABS: Slide Review Reflex No
[2024-12-04 07:35] LABS: Albumin* 3.4 g/dL (3.3-5.0); Chloride* 104 mmol/L (96-114); Sodium* 136 mmol/L (135-149)
[2024-12-04 07:36] LABS: Potassium* 3.2 mmol/L (3.6-5.1)
[2024-12-04 07:39] LABS: Alanine Aminotransferase* 13 U/L (4-35); Alkaline Phosphatase* 60 U/L (40-150); Anion Gap 7 mEq/L (7-15); Aspartate Amino Transferase* 33 U/L (12-35); Bilirubin Total* 0.3 mg/dL (0.1-1.5); Blood Urea Nitrogen* 14 mg/dL (7-30); Calcium* 8.5 mg/dL (8.4-10.6); Carbon Dioxide* 25 mmol/L (20-32); Creatinine* 0.8 mg/dL (0.5-1.5); Est. Creatinine Clearance* 37.12; Estimated Glomerular Filt Rate 74 ml/min; Glucose* 84 mg/dL (60-115); Magnesium* 1.9 mg/dL (1.5-2.6); Total Protein* 6.3 g/dL (6.0-8.3)
[2024-12-04 08:06] LABS: C Reactive Protein* 15.8 mg/dL (0.5-1.0)
[2024-12-04 08:45] VITALS: PULSE 63; RESP 18
[2024-12-04 08:53] VITALS: BP 151/82; PULSE 95; RESP 16; TEMP 36.5; O2SAT 93
--- NOTE | 2024-12-04 09:14 | P.IMPN_ITS ---
Progress Note: A&P Assessment and plan (1) Acute UTI: Problem details: - complex UTI with bacteremia - E coli isolated in both bottles - based on history and clinical presentation will go from Zosyn to Cefazolin 2 grams o3lfoow - repeat blood cultures this morning - IV fluids, replace electrolytes magnesium and potassium - monitor labs Status: Acute (2) Bacteremia, escherichia coli: Problem details: -Ecoli in both aerobic and anaerobic bottle -Zosyn --> Cefazolin -repeated culture this morning to assure clearance Status: Acute (3) Recurrent UTI (urinary tract infection): Problem details: -two previous ecoli bacteremias -recurrent ecoli and klebsiella bladder infections -will recommend methenamine hippurate and estrogen at discharge for prevention Status: Acute (4) CKD stage 3b, GFR 30-44 ml/min: Problem details: baseline creat 0.9, crcl 37 stable Status: Acute (5) Chronic anticoagulation: Problem details: Xarelto 10mg daily Status: Acute (6) History of DVT (deep vein thrombosis): Problem details: On chronic anticoagulation, Eliquis 10 mg daily. History of IVC filter Status: Acute (7) Multiple sclerosis: Problem details: Diagnosed approximately 40 years ago Followed by Neurology (Dr. Bellamy) Status: Acute (8) Hypertension: Problem details: home meds on hold given sepsis HcTZ and Toprol xl Status: Acute Subjective Interval history: Daily Progress Note - Hospital Medicine Day #: 3 CC: bacteremia; UTI, CDIFF HIPPURATE NO MACROBID UROGYN ESTROGEN CDIFF NO TYLENOL IMODIUM PROBIOTIC 24 HOUR UPDATE: Patient is having worsening diarrhea. She relates straight liquid, no blood. No fever or abdominal pain. From a UTI/Bacteremia - she feels back to normal. Her energy, ability to ambulate, eat, etc all feels normal. She'd like to head home anytime. Notable Labs, Micro, Rads, Interventions: Urine yesterday showed 2+ protein, 2+ blood, positive nitrate and 1+ leukocyte esterase. Greater 100 white blood cells per high-power field. Negative respiratory swab Chest x-ray was unremarkable on admission Blood culture from yesterday is growing E coli - both bottles, aerobic and a naerobic. Objective: Alert, pleasant. No acute distress. Vitals: see above Lungs: Clear. Cardiac: S1S2. Abdomen: Soft. Disposition/Potential discharge - We will continue IV antibiotics until full susceptibility is confirmed and we can transition to orals. Close monitoring of her blood pressure, fever curve, inflammatory markers and white blood cell count. Today I spent 50minutes seeing the patient, reviewing Expanse and EPIC notes/diagnostics, discussing the care plan with our care time that includes social work, PT/OT, pharmacy, RT, intermediate and documenting my impressions and plan in the medical record. Exam Const: Vital Signs, click to edit/add: Vital Signs - 24 hr 12/03/24 11:00 12/03/24 11:32 12/03/24 15:00 Temperature 98.8 F 97.7 F Pulse Rate [Pulse Oximeter] 55 L 64 68 Respiratory Rate 18 16 Blood Pressure [Le ft Arm] 125/64 120/69 Blood Pressure [Ri ght Arm] 109/55 L Pulse Oximetry 95 97 94 Oxygen Delivery Me thod Room Air Room Air Room Air 12/03/24 19:00 12/03/24 23:00 12/03/24 23:00 Temperature 97.7 F 97.5 F L Pulse Rate [Pulse Oximeter] 67 67 67 Respiratory Rate 18 16 16 Blood Pressure [Le ft Arm] 123/58 L 134/72 Blood Pressure [Ri ght Arm] Pulse Oximetry 94 97 Oxygen Delivery Me thod Room Air Room Air 12/04/24 03:00 12/04/24 08:53 Temperature 97.5 F L 97.7 F Pulse Rate [Pulse Oximeter] 65 95 Respiratory Rate 18 16 Blood Pressure [Le ft Arm] 144/72 H 151/82 H Blood Pressure [Ri ght Arm] Pulse Oximetry 97 93 Oxygen Delivery Me thod Room Air Room Air Labs Labs: Laboratory Results - last 24 hr 12/03/24 12/04/24 18:34 06:35 WBC 7.26 RBC 3.29 L Hgb 9.9 L Hct 31.4 L MCV 95 MCH 30 MCHC 32 Plt Count 181 Sodium 135 136 Potassium 3.1 L 3.2 L Chloride 103 104 Carbon Dioxide 25 25 Anion Gap 7 7 BUN 18 14 Creatinine 0.9 0.8 Estimated Creat Clear 37.12 37.12 Estimated GFR 65 74 Glucose 115 84 Lactate 0.6 Calcium 8.3 L 8.5 Magnesium 2.2 1.9 Total Bilirubin 0.3 AST 33 ALT 13 Alkaline Phosphatase 60 C-Reactive Protein 15.8 H Total Protein 6.3 Albumin 3.4
[2024-12-04] MEDS: SODIUM CHLORIDE 0.9 % (FLUSH) 10 ML SYRINGE 5 ML IVF (09:15)
[2024-12-04] MEDS: RIVAROXABAN 10 MG TABLET PO (09:15)
[2024-12-04] MEDS: LACTOBACILLUS ACIDOPHILUS 1 TABLET 1 TAB PO ×2 (10:33→12:37)
[2024-12-04 11:00] VITALS: BP 153/76; PULSE 63; RESP 18; TEMP 36.6; O2SAT 96
[2024-12-04 11:35] LABS: CDIFFEPI 027 PRESUMPTIVE NEGATIVE (Negative)
[2024-12-04 11:37] LABS: C.Difficile POSITIVE (Negative)
[2024-12-04] MEDS: VANCOMYCIN 125 MG CAPSULE PO (12:37)
--- NOTE | 2024-12-04 13:00 | P.DS_ITS ---
DS: Providers Provider Date Seen: 12/04/24 Date of admission: 12/03/24 09:33 Primary care physician: Not a Local Provider Admitting Clinician: Kamran Nath MD Consults: 12/02/24 21:41 Consult to Occupational Therapy [CONS] Routine Comment: Reason(s) for OT Consult:: Evaluate and Treat Any Restrictions?:: No Restrictions Consult to Physical Therapy [CONS] Routine Comment: Reason(s) for PT Consult:: Evaluate and Treat Any Restrictions?:: No Restrictions Attending Physician on discharge: [facility] Date [facility] Discharge: 12/04/24 DS: Diagnosis Discharge Diagnosis (1) Acute UTI: Status: Acute Problem details: - complex UTI with bacteremia - E coli isolated in both bottles - treated with IV zosyn and then cefazolin, oral transition to Vantin BID (will complete 10 days for bacteremia) - repeat blood culture NGTD - IV fluids, replaced electrolytes magnesium and potassium - monitor labs (2) Bacteremia, escherichia coli: Status: Acute Problem details: -Ecoli in both aerobic and anaerobic bottle. Source is UTI. -Zosyn --> Cefazolin --> Vantin (3) Recurrent UTI (urinary tract infection): Status: Acute Problem details: -two previous ecoli bacteremias -recurrent ecoli and klebsiella bladder infections -will recommend methenamine hippurate and estrogen at discharge for prevention -will recommend urogyn for consultation as outpatient (4) C. difficile diarrhea: Status: Acute Problem details: -dx 12/04/24 -Vanco orally x 10 days - to be continued at discharge DS: Summary Hospital Course Hospital Course: FINAL DIAGNOSIS/FOLLOW UP ISSUES: E coli UTI with bacteremia: Received 24 hours of Zosyn, 24 hours the cefazolin, transition to oral cefpodoxime at discharge. +CDIFF on day of discharge; minimally symptomatic. Recommendation is for a referral to Urogynecology, topical estrogen to prevent recurrent UTIs. BRIEF HOSPITAL COURSE: Patient was admitted for 2 nights; thee days. Synopsis of acute inpatient issues are outlined above. Chronic medical conditions with notable findings outlined above. Pt responded quickly to IV antibiotics. She felt nearly normal in 24 hour s. Unfortunately her blood culture was positive with Ecoli as well. In addition she developed CDIFF by day two, however not overly symptomatic with two continent loose stools on 12/04. PCR + CDIFF. No fever after the first night, good appetite, good strength. Patient I discussed that given her age with bacteremia and CDIFF she should remain hospitalized for at least 24 to 48 more hours. She is clear she would like to discharge before our winter storm on 12/05 and feels well enough to manage and complete the oral antibiotic for UTI/bacteremia and oral Vanc for CDIFF. She is eating normal. DISCHARGE MEDICATIONS: See Reconciled list - SIGNIFICANT CHANGES: I stop the nitrofurantoin I added the 2 antibiotics as described above I sent topical estrogen and methenamine hippurate as well Specific instructions to the patient and follow-up are outlined below. REVIEW OF SYSTEMS No new chest pain or dyspnea Pain controlled No voiding difficulties Tolerating diet challenge PHYSICAL EXAM: CONSTITUTIONAL: Conversive, good historian. A/O. Knows setting and context. GENERAL: Well-developed and above ideal body weight, in no respiratory distress. VITAL SIGNS: see record. HEENT: Sclerae are anicteric. No petechiae. CARDIAC: rhythm is regular. There is no S3 or rub. No harsh murmurs. Extremities show trace edema with symmetrical pulses. PULM: good air entry with no wheeze. NEURO: Speech is fluent. A brief neurologic exam is negative. SKIN: No rashes, petechiae, concerning changes PSYCHIATRIC: Euthymic. DISPOSITION: Home Time spent on discharge 37 minutes. Status at Discharge Functional status at discharge: uses cane/walker Overall status at discharge: patient is progressing back to baseline Time Spent with Patient Time attestation: Total time spent providing and/or coordinating discharge services: Time spent: Greater than 30 minutes Exam Const: Vital Signs, click to edit/add: Vital Signs - 24 hr 12/03/24 15:00 12/03/24 19:00 12/03/24 23:00 Temperature 97.7 F 97.7 F Pulse Rate [Pulse Oximeter] 68 67 67 Respiratory Rate 16 18 16 Blood Pressure [Le ft Arm] 120/69 123/58 L Pulse Oximetry 94 94 Oxygen Delivery Me thod Room Air Room Air 12/03/24 23:00 12/04/24 03:00 12/04/24 08:53 Temperature 97.5 F L 97.5 F L 97.7 F Pulse Rate [Pulse Oximeter] 67 65 95 Respiratory Rate 16 18 16 Blood Pressure [Le ft Arm] 134/72 144/72 H 151/82 H Pulse Oximetry 97 97 93 Oxygen Delivery Me thod Room Air Room Air Room Air 12/04/24 11:00 Temperature 97.9 F Pulse Rate [Pulse Oximeter] 63 Respiratory Rate 18 Blood Pressure [Le ft Arm] 153/76 H Pulse Oximetry 96 Oxygen Delivery Me thod Room Air DS: Data Data Completed and Pending Labs on day of discharge: Labs from last 24 hours 12/04/24 12/04/24 12/03/24 10:33 06:35 18:34 WBC 7.26 RBC 3.29 L Hgb 9.9 L Hct 31.4 L MCV 95 MCH 30 MCHC 32 Plt Count 181 Sodium 136 135 Potassium 3.2 L 3.1 L Chloride 104 103 Carbon Dioxide 25 25 Anion Gap 7 7 BUN 14 18 Creatinine 0.8 0.9 Estimated Creat Clear 37.12 37.12 Estimated GFR 74 65 Glucose 84 115 Lactate 0.6 Calcium 8.5 8.3 L Magnesium 1.9 2.2 Total Bilirubin 0.3 AST 33 ALT 13 Alkaline Phosphatase 60 C-Reactive Protein 15.8 H Total Protein 6.3 Albumin 3.4 Stl C. diff Tox B Gene POSITIVE A* Stl C. diff [id number] PRESUMPTIVE NEGATIVE Preliminary micro results at discharge 12/02/24 19:05 Blood Culture - Preliminary Blood Escherichia coli 12/03/24 10:32 Blood Culture - Preliminary Blood NO GROWTH AFTER 24 HOURS Discharge Plan Discharge Disposition: Home, Self-Care Date of Admission: 12/03/24 09:33 Attending Provider on Discharge: Yoly Thorpe Primary Care Provider: Provider,Not a Local Condition: Stable Anticipated Discharge Date/Time: 12/04/24 13:18 Discharge Medications: New vancomycin 125 mg Capsule 125 mg PO QID Qty: 40 0RF methenamine hippurate 1 gram tablet 0.5 g PO BID Qty: 15 1RF cefpodoxime 200 mg tablet 200 mg PO BID Qty: 16 0RF Rx Instructions: must administer with a meal/food cranberry 500 mg capsule 500 mg PO BID Qty: 60 0RF Rx Instructions: administer with meals conjugated estrogens 0.625 mg/gram cream 0.3125 mg vaginal .qod Qty: 30 0RF Continued Xarelto 10 mg tablet 10 mg PO DAILY gabapentin 300 mg capsule 300 mg PO HS hydrochlorothiazide 12.5 mg tablet 12.5 mg PO DAILY simvastatin 10 mg tablet 10 mg PO HS metoprolol succinate 50 mg tablet extended release 24 hr 50 mg PO DAILY apple cider vinegar 500 mg tablet 500 mg PO DAILY ascorbic acid (vitamin C) 500 mg tablet 500 mg PO DAILY acetaminophen 500 mg tablet 1,000 mg PO Q6H PRN calcium carbonate-vitamin D3 1,000 mg-20 mcg (800 unit) tablet 1 tab PO DAILY cyanocobalamin (vitamin B-12) 1,000 mcg tablet 1,000 mcg PO DAILY multivitamin [Daily Multi-Vitamin] Tablet 1 tab PO DAILY Discontinued nitrofurantoin monohyd/m-cryst 100 mg capsule 100 mg PO DAILY cranberry 500 mg capsule 500 mg PO DAILY Discharge Orders: Discharge Order (Routine); Ordered 12/04/24 Ordered By: Yoly Thorpe Additional Instructions: 1. Take all the vancomycin for the CDIFF 2. Take all the antibiotics for the UTI and bacteremia 3. For prevention of UTIs - I'm recommending the supplement methenamine trish urate (1/2 tab twice a day) and estrogen cream. I would like you to see a urogynecologist to discuss further prevention and monitoring. Activity Level: Activity as Tolerated Discharge Diet: Regular Follow Up Appointments: Maye Slaughter MD [Referring] - (2 weeks) Forms: [employer]al Info Instructions
[2024-12-04 15:00] VITALS: BP 164/76; PULSE 69; RESP 18; TEMP 36.7; O2SAT 97
--- NOTE | 2024-12-04 15:51 | PC.NURSE ---
Patient alert and oriented during shift. No reports of pain and vitally stable. Patient reporting diarrhea and positive for c.diff. Precautions in place. Patient taking medications as directed. Discharge in, patient educated on discharge instructions and all questions answered. Daughter arrived and patient left via wheelchair and transported by private vehicle.
== END 2024-12-04 15:45 | disposition home or self-care (01) | DRG 690 ==
LOC: ED 20:35 → MEDSURG 21:47
PROVIDERS: Family Medicine; Admitting Provider Internal Medicine; Emergency Provider Family Medicine; Visit Provider Internal Medicine
DX: N39.0 Urinary tract infection, site not specified (principal); R78.81 Bacteremia; Z16.29 Resistance to other single specified antibiotic; A04.72 Enterocolitis due to Clostridium difficile, not specified as recurrent; B96.20 Unspecified Escherichia coli [E. coli] as the cause of diseases classified elsewhere; Z79.01 Long term (current) use of anticoagulants; Z86.718 Personal history of other venous thrombosis and embolism; I12.9 Hypertensive chronic kidney disease with stage 1 through stage 4 chronic kidney disease, or unspecified chronic kidney disease; N18.32 Chronic kidney disease, stage 3b; E78.5 Hyperlipidemia, unspecified; R50.9 Fever, unspecified; G35 Multiple sclerosis; Z87.440 Personal history of urinary (tract) infections
CPT/HCPCS: 36415; 71046; 80048; 80053; 80076; 81001; 82803; 83605; 83735; 84100; 85025; 85027; 86140; 87040; 87086; 87493; 87631; 87800; 94761; 97161; 97165; 99284; 99285; A9270; G0378; J0690; J2543; J3475; J7030